=== PATIENT | male | born 1980 | race Caucasian/White ===

== ENCOUNTER 2023-05-21 15:36 | Outpatient (OUT) | payer OTHER, SELFPAY ==
--- NOTE | 2023-05-21 15:40 | US_ITS ---
[facility] [id number] Patient Name: ARLEN VERGARA MRN: [id number] date: 1980 Sex: M Assigned Patient Location: [place] Current Patient Location: Accession/Order Number: [id number] Exam Date: 05/21/2023 15:41 Report Date: 05/23/2023 02:07 At the request of: NON-STAFF PHYSICIAN Procedure: US venous doppler LE RT EXAMINATION: US venous doppler LE RT HISTORY: Pain and swelling of right lower leg M79.661 COMPARISON: No relevant comparison available. FINDINGS: REGION: Right lower extremity THROMBI: None. COMPRESSIBILITY: Normal compressibility. FLOW: Normal waveform and antegrade flow between 5 and 20 cm/s. OTHER: None. US/US venous doppler LE RT IMPRESSION: 1. No deep vein thrombus within the right lower extremity. 2. Several patent superficial varicosities seen in region of patient's pain. Electronically authenticated by: TROY ACUNA Date: 05/23/2023 02:07
== END 2023-05-21 15:37 | disposition home or self-care (01) ==
LOC: US 15:36
PROVIDERS: PCP Family Medicine
DX: M79.661 Pain in right lower leg (principal); M79.89 Other specified soft tissue disorders
CPT/HCPCS: 93971

== ENCOUNTER 2023-09-16 10:06 | Outpatient (REF) | payer OTHER, SELFPAY ==
[2023-09-16 10:50] LABS: SARS-CoV-2 Ag POSITIVE (NEGATIVE)
== END 2023-09-16 10:07 | disposition home or self-care (01) ==
LOC: LAB 10:06
PROVIDERS: PCP Family Medicine; Visit Provider Family Medicine
DX: R52 Pain, unspecified (principal)
CPT/HCPCS: 87811

== ENCOUNTER 2025-07-23 10:56 | Outpatient (OUT) | payer BC, SELFPAY ==
--- OUTSIDE RECORDS SUMMARY | 2025-07-23 11:09 | XMS_ITS | CCD ---
Author Organization [facility] Care Team Providers Care Lamination Operator Name Role Phone DR DONAVAN WRAY Primary Care Unavailable NICO HUNT Admitting Unavailable NICO HUNT Attending Unavailable NICO HUNT Consulting Unavailable EVELIA BARRERA Unavailable KAMALA, DR COX Primary Care Unavailable JASPAL CAMEJO Admitting Unavailable JASPAL CAMEJO Attending Unavailable ARLEN ALVAREZ Unavailable NICO HUNT Consulting Unavailable Donavan Wray MD Primary Care Provider [phone] Navya Calvin NP Unavailable Dann Zelaya MD Attending Provider Dann Zelaya Attending Unavailable Dann Zelaya Admitting Unavailable ROSIE FOREMAN Attending Unavailable NAVYA CALVIN Attending Unavailable SARINA CASANOVA Attending Unavailable SARINA CASANOVA Attending Unavailable SAMUEL LOPEZ Attending Unavailable SARINA CASANOVA Referring Unavailable ROSIE FOREMAN Attending Unavailable SARINA CASANOVA Referring Unavailable NAVYA CALVIN NP-C Attending Unavailable NAVYA CALVIN NP-C Referring Unavailable Allergies Allergy Classification Reported Allergen(s) Allergy Type Date of Onset Reaction(s) Facility (1 source) Penicillin Drug Allergy 07-11-2021 [facility] Repository (20 sources) Penicillins Drug Allergy 11-23-2022 Unknown [facility] Medications Current Medications Medication Drug Class(es) Dates Sig (Normalized) Sig (Original) [id number] 200 actuat albuterol 0.09 mg/actuat metered dose inhaler (20 sources) beta2-Adrenergic Agonist Start: 05-18-2024 take 2 puff(s) by inhalation every six hours for wheezing albuterol HFA 90 mcg/act inhaler Indications: Shortness of breath Inhale 2 puffs every 6 (six) hours if needed for wheezing or shortness of breath 18 g 11 05/18/2024 Active amLODIPine 10 mg oral tablet (20 sources) Dihydropyridine Calcium Channel Rdoy Start: 06-12-2025 take 1 tablet by mouth once daily amLODIPine (Norvasc) 10 MG tablet Indications: Benign essential hypertension Take 1 tablet (10 mg) by mouth Daily 30 tablet 06/12/2025 Active Start: 09-06-2024 take 1 tablet by paramjit th once daily amLODIPine (Norvasc) 10 MG tablet Indications: Benign essential hypertension (CMS/HCC) TAKE 1 TABLET BY MOUTH EVERY DAY 90 tablet 4 09/06/2024 Active Start: 08-23-2023 take 1 tablet by paramjit th once daily amLODIPine (Norvasc) 10 MG tablet Indications: Benign essential hypertension (CMS/HCC) TAKE 1 TABLET BY MOUTH DAILY 100 tablet 3 08/23/2023 Active benzonatate 100 mg oral capsule (2 sources) Non-narcotic Antitussive Start: 08-17-2024 End: 08-24-2024 take 1 capsule by mouth three times daily as needed for cough benzonatate (Tessalon Perles) 100 MG capsule Indications: Acute cough , Abnormal lung sounds , Acute bronchitis, unspecified organism Take 1 capsule (100 mg) by mouth 3 (three) times a day as needed for cough for up to 7 days Do not crush or chew. 20 capsule 08/17/2024 08/24/2024 Active cefdinir 300 mg oral capsule (2 sources) Cephalosporin Antibacterial Start: 06-28-2025 End: 07-08-2025 take 1 capsule by mouth in the morning cefdinir (Omnicef) 300 MG capsule Indications: Acute non-recurrent pansinusitis Take 1 capsule (300 mg) by mouth in the morning and 1 capsule (300 mg) before bedtime. Do all this for 10 days. 20 capsule 06/28/2025 07/08/2025 Active codeine phosphate 2 mg/ml / guaiFENesin 20 mg/ml oral solution (3 sources) Opioid Agonist Start: 06-05-2024 End: 06-12-2024 take 10 mL by mouth every six hours for cough guaiFENesin-code ine (Robitussin-AC) 100-10 MG/5ML syrup Indications: Moderate persistent asthma with exacerbation (CMS/HCC) Take 10 mL by mouth every 6 (six) hours if needed for cough for up to 7 days 280 mL 06/05/2024 06/12/2024 Active hydroCHLOROthiazide 12.5 mg / lisinopril 20 mg oral tablet (20 sources) Thiazide Diuretic, Angiotensin Converting Enzyme Inhibitor Start: 09-06-2024 take 1 tablet by mouth twice daily lisinopril-hydro CHLOROthiazide 20-12.5 MG tablet Indications: Benign essential hypertension TAKE 1 TABLET BY MOUTH TWICE A DAY 180 tablet 4 09/06/2024 Active Start: 08-23-2023 take 1 tablet by paramjit twice daily lisinopril-hydroCHLOROthiazide 20-12.5 M G tablet Indications: Benign essential hypertension (CMS/HCC) TAKE 1 TABLET BY MOUTH TWICE A DAY 200 tablet 3 08/23/2023 Active methylPREDNISolone (4 sources) Corticosteroid Start: 06-28-2025 End: 07-05-2025 methylPREDNISolone (Medrol Dospak) 4 MG tablets Indications: Acute non-recurrent pansinusitis Follow schedule on package instructions 21 tablet 06/28/2025 07/05/2025 Active Start: 08-17-2024 End: 08-24-2024 methylPREDNISolone (Medrol D ospak) 4 MG tablets Indications: Acute cough , Abnormal lung sounds , Acute bronchitis, unspecified organism Follow schedule on package instructions 21 tablet 08/17/2024 08/24/2024 Active sildenafil 100 mg oral tablet (19 sources) Phosphodiesterase 5 Inhibitor Start: 08-07-2024 take 1 tablet by mouth once daily as needed sildenafil (Viagra) 100 MG tablet Indications: Erectile dysfunction, unspecified erectile dysfunction type TAKE 1 TABLET BY MOUTH EVERY DAY NEEDED 3 tablet 11 08/07/2024 Active Start: 05-05-2023 End: 06-05-2024 sildenafil (Viagra) 100 MG t ablet Indications: Erectile dysfunction, unspecified erectile dysfunction type TAKE 1 TABLET ONCE A DAY NEEDED 6 tablet 11 05/05/2023 06/05/2024 Discontinued (Other) Tirzepatide-Weight Managemen t (Zepbound) 2.5 MG/0.5ML solution auto-injector (2 sources) Start: 06-28-2025 End: 07-28-2025 Tirzepatide-Weight Managemen t (Zepbound) 2.5 MG/0.5ML solution auto-injector Indications: Morbid (severe) obesity due to excess calories (CMS-HCC) , Obesity, class 3 , Body mass index (BMI) 40.0-44.9, adult ([facility] [place]) , Fatty liver , Obstructive sleep apnea syndrome , Benign essential hypertension Inject 2.5 mg under the skin 1 (one) time per week 2 mL 06/28/2025 07/28/2025 Active Completed/Discontinued Medications Medication Drug Class(es) Dates Sig (Normalized) Sig (Original) baclofen 10 mg oral tablet (3 sources) gamma-Aminobutyric Acid-ergic Agonist Start: 08-10-2023 End: 06-05-2024 take 1 tablet by mouth at bedtime baclofen (Lioresal) 10 MG tablet Indications: Spasm of muscle of lower back TAKE 1 TABLET BY MOUTH IN THE MORNING, EVENING AND BEFORE BEDTIME 270 tablet 1 08/10/2023 06/05/2024 Discontinued (Other) chlorhexidine gluconate 40 mg/ml medicated liquid soap (5 sources) Start: 11-07-2024 End: 06-28-2025 Chlorhexidine Gluconate (Hibiclens) 4 % solution Indications: Hidradenitis suppurativa Use in shower from the neck down at least 1-2x/week 532 mL 11 11/07/2024 06/28/2025 Discontinued (Therapy completed) clindamycin 10 mg/ml topical lotion (5 sources) Lincosamide Antibacterial Start: 11-07-2024 End: 06-28-2025 clindamycin (Cleocin T) 1 % lotion Indications: Hidradenitis suppurativa Apply thin later to affected areas on the body, once daily 120 mL 11/07/2024 06/28/2025 Discontinued (Therapy completed) cyclobenzaprine hydrochloride 10 mg oral tablet (15 sources) Muscle Relaxant Start: 09-20-2024 End: 06-28-2025 take 1 tablet by mouth three times daily as needed for muscle spasms cyclobenzaprine (Flexeril) 10 MG tablet Indications: Acute left-sided low back pain with left-sided sciatica Take 1 tablet (10 mg) by mouth 3 (three) times a day as needed for muscle spasms for up to 10 days 30 tablet 09/20/2024 06/28/2025 Discontinued (Therapy completed) Start: 08-10-2023 End: 06-05-2024 take 1 tablet by mouth three times daily as needed for muscle spasms cyclobenzaprine (Flexeril) 10 MG tablet Indications: Acute bilateral low back pain with sciatica, sciatica laterality unspecified Take 1 tablet (10 mg) by mouth 3 (three) times a day as needed for muscle spasms for up to 10 days. 30 tablet 08/10/2023 06/05/2024 Discontinued (Other) doxycycline monohydrate 100 mg oral capsule (13 sources) Tetracycline-class Drug Start: 10-24-2024 End: 06-28-2025 take 1 capsule by mouth twice daily doxycycline (Monodox) 100 MG capsule Indications: EIC (epidermal inclusion cyst) Take 1 capsule, by mouth, bid x 7 days 14 capsule 10/24/2024 06/28/2025 Discontinued (Therapy completed) Start: 08-17-2024 End: 08-27-2024 doxycycline (Vibra-Tabs) 100 MG tablet Indications: Acute cough , Abnormal lung sounds , Acute bronchitis, unspecified organism Take 1 tablet (100 mg) by mouth in the morning and 1 tablet (100 mg) before bedtime. Do all this for 10 days. Take with a full glass of water and do not lie down for at least 30 minutes after.. 20 tablet 08/17/2024 08/27/2024 Active Start: 06-05-2024 End: 06-12-2024 doxycycline (Vibramycin) 100 MG capsule Indications: Moderate persistent asthma with exacerbation (CMS/HCC) Take 1 capsule (100 mg) by mouth in the morning and 1 capsule (100 mg) before bedtime. Do all this for 7 days. Take with at least 8 ounces (large glass) of water, do not lie down for 30 minutes after. 14 capsule 06/05/2024 06/12/2024 Active fluticasone propionate 0.05 mg/actuat metered dose nasal spray (3 sources) Corticosteroid End: 06-05-2024 take 1 spray(s) nasal route in the morning fluticasone (Flonase) 50 MCG/ACT nasal spray Administer 1 spray into each nostril in the morning. 06/05/2024 Discontinued (Other) hydroCHLOROthiazide 12.5 mg oral tablet (3 sources) Thiazide Diuretic Start: 06-18-2023 End: 06-05-2024 take 1 tablet by mouth once daily in the morning hydroCHLOROthiazide (HYDRODiuril) 12.5 MG tablet Indications: Benign essential hypertension (CMS/HCC) TAKE 1 TABLET BY MOUTH EVERY DAY IN THE MORNING (12.5 MG) 100 tablet 3 06/18/2023 06/05/2024 Discontinued (Other) magnesium gluconate 550 mg oral tablet (5 sources) End: 06-28-2025 take 1 tablet by mouth in the morning magnesium 30 MG tablet Take 30 mg by mouth in the morning and 30 mg before bedtime. 06/28/2025 Discontinued (Therapy completed) predniSONE 20 mg oral tablet (14 sources) Start: 09-20-2024 End: 06-28-2025 predniSONE (Deltasone) 20 MG tablet Indications: Acute left-sided low back pain with left-sided sciatica 3 tabs x 2 days, 2 tabs x 2 days, 1 1/2 tab x 2 days, 1 tab x 2 days, 1/2 tab x 2 days 5 tablet 09/20/2024 06/28/2025 Discontinued (Therapy completed) Start: 05-18-2024 End: 06-05-2024 take 4 tablets by mouth once daily, then take 3 tablets by mouth once daily, then take 2 tablets by mouth once daily, then take 1 tablet by mouth once daily predniSONE (Deltasone) 10 MG tablet Indications: Bronchitis Take 4 tablets (40 mg) by mouth Daily for 4 days, THEN 3 tablets (30 mg) Daily for 4 days, THEN 2 tablets (20 mg) Daily for 4 days, THEN 1 tablet (10 mg) Daily for 4 days. 40 tablet 05/18/2024 06/05/2024 Discontinued (Other) Turmeric extract (5 sources) End: 06-28-2025 Turmeric (QC TUMERIC COMPLEX PO) Take by mouth 06/28/2025 Discontinued (Therapy completed) Turmeric (QC HELDER FERNANDO COMPLEX PO) Take by mouth Active Problems Active Problems Problem Classification Problem Date Documented Date Episodic/Chronic Acute bronchitis (2 sources) Acute bronchitis; Translations: [Acute bronchitis, unspecified] 08-17-2024 Episodic Anxiety disorders (20 sources) Anxiety; Translations: [Anxiety disorder, unspecified] Onset: 05-11-2023 05-11-2023 Chronic Asthma (20 sources) Asthmatic bronchitis; Translations: [Unspecified asthma, uncomplicated] Onset: 05-11-2023 05-11-2023 Chronic Coma; stupor; and brain damage (20 sources) Daytime somnolence; Translations: [Somnolence] Onset: 05-11-2023 05-11-2023 Episodic E Codes: Fall (1 source) Fall on same level from slipping, tripping and stumbling without subsequent striking against object, initial encounter; Translations: [FALL SAME LVL SLIP NO STRK OBJ INIT] Onset: 08-24-2022 Episodic Esophageal disorders (20 sources) Gastroesophageal reflux disease; Translations: [Gastro-esophageal reflux disease without esophagitis] Onset: 06-06-2008 05-11-2023 Chronic Essential hypertension (20 sources) Benign essential hypertension; Translations: [Essential (primary) hypertension] Onset: 06-06-2008 05-11-2023 Chronic Joint disorders and dislocations; trauma-related (20 sources) Patellar maltracking; Translations: [Other disorders of patella, unspecified knee] Onset: 05-11-2023 05-11-2023 Chronic Open wounds of extremities (6 sources) Laceration without foreign body of left hand, initial encounter; Translations: [Open wound of left thigh] Onset: 09-11-2021 Episodic Osteoarthritis (20 sources) Osteoarthritis of right knee joint; Translations: [Unilateral primary osteoarthritis, right knee] Onset: 11-03-2019 05-11-2023 Chronic Other aftercare (1 source) Other long term care social worker (current) drug therapy; Translations: [OTH AVIATION PROJECT ENGINEER CURRENT DRUG THERAPY] Onset: 08-24-2022 Episodic Other circulatory disease (2 sources) Abnormal chest sounds; Translations: [Other specified symptoms and signs involving the circulatory and respiratory systems] 08-17-2024 Episodic Other ear and sense organ disorders (2 sources) Impacted cerumen in right ear; Translations: [Impacted cerumen, right ear] 08-17-2024 Episodic Other liver diseases (4 sources) Steatosis of liver; Translations: [Fatty (change of) liver, not elsewhere classified] 06-28-2025 Chronic Other lower respiratory disease (2 sources) Cough; Translations: [Acute cough] 08-17-2024 Episodic Other lower respiratory disease (2 sources) Dyspnea; Translations: [Shortness of breath] 06-28-2025 Episodic Other male genital disorders (20 sources) Secondary erectile dysfunction; Translations: [Male erectile dysfunction, unspecified] Onset: 05-11-2023 05-11-2023 Chronic Other non-traumatic joint disorders (20 sources) Derangement of right shoulder joint; Translations: [Other specific joint derangements of right shoulder, not elsewhere classified] Onset: 05-11-2023 05-11-2023 Chronic Other non-traumatic joint disorders (3 sources) Pain in right knee; Translations: [PAIN IN RIGHT KNEE] Onset: 08-23-2022 Episodic Other nutritional; endocrine; and metabolic disorders (20 sources) Obese class II; Translations: [Class 2 obesity] Onset: 05-11-2023 05-11-2023 Chronic Other nutritional; endocrine; and metabolic disorders (20 sources) Obesity; Translations: [Obesity, unspecified] Onset: 05-11-2023 05-11-2023 Chronic Other nutritional; endocrine; and metabolic disorders (4 sources) Obese class III; Translations: [Obesity, class 3] 06-28-2025 Chronic Other nutritional; endocrine; and metabolic disorders (4 sources) Body mass index 40+ - severely obese; Translations: [Body mass index (BMI) 40.0-44.9, adult] 06-28-2025 Chronic Other nutritional; endocrine; and metabolic disorders (2 sources) Obesity caused by energy imbalance; Translations: [Morbid (severe) obesity due to excess calories] 06-28-2025 Chronic Other screening for suspected conditions (not mental disorders or infectious disease) (4 sources) Patient encounter status; Translations: [Encounter for screening for malignant neoplasm of prostate] 06-28-2025 Episodic Other skin disorders (4 sources) Epidermoid cyst; Translations: [Epidermal cyst] 10-24-2024 Episodic Other skin disorders (2 sources) Seborrheic keratosis; Translations: [Other seborrheic keratosis] 11-07-2024 Episodic Other skin disorders (2 sources) Hidradenitis suppurativa; Translations: [Hidradenitis suppurativa] 11-08-2024 Episodic Other upper respiratory disease (20 sources) Allergic rhinitis due to pollen; Translations: [Allergic rhinitis due to pollen] Onset: 05-11-2023 05-11-2023 Chronic Other upper respiratory infections (2 sources) Acute pansinusitis; Translations: [Acute pansinusitis, unspecified] 06-28-2025 Episodic Residual codes; unclassified (20 sources) Obstructive sleep apnea syndrome; Translations: [Obstructive sleep apnea (adult) (pediatric)] Onset: 05-11-2023 05-11-2023 Chronic Residual codes; unclassified (2 sources) Pain; Translations: [Pain, unspecified] 10-24-2024 Episodic Spondylosis; intervertebral disc disorders; other back problems (2 sources) Acute back pain with sciatica; Translations: [Lumbago with sciatica, left side] 09-20-2024 Episodic Sprains and strains (1 source) Sprain of unspecified site of right knee, initial encounter; Translations: [SPRAIN UNS SITE RT KNEE INITIAL] Onset: 08-24-2022 Episodic Substance-related disorders (20 sources) Nicotine dependence, cigarettes, uncomplicated; Translations: [Smoker] Onset: 08-24-2022 05-11-2023 Chronic Unclassified (2 sources) Open wound of left thigh 09-25-2024 Past or Other Problems Problem Classification Problem Date Documented Da te Episodic/Chronic Abdominal hernia (15 sources) Umbilical hernia; Translations: [Umbilical hernia without obstruction or gangrene] Onset: 10-12-2024 09-25-2024 Episodic E Codes: Cut/pierceb (1 source) Nail entering through skin, initial encounter; Translations: [NAIL ENTERING THROUGH SKIN INITIAL] Onset: 09-15-2021 Episodic Immunizations and screening for infectious disease (1 source) Encounter for immunization; Translations: [ENCOUNTER FOR IMMUNIZATION] Onset: 09-15-2021 Episodic Other injuries and conditions due to external causes (20 sources) Bone injury; Translations: [Other injury of unspecified body region, initial encounter] Onset: 05-11-2023 05-11-2023 Episodic Other lower respiratory disease (2 sources) Cough; Translations: [Acute cough] 06-05-2024 Episodic Results Test Name Value Interpretation Reference Range Facility Pathology Request for Lab Co rpon 04-04-2025 Pathology Request for Lab Lisa Normal [facility] Comment on above: Order Comment: SKIN SPECIMEN Result Comment: See report. Scanned copy available in EMR. PERFORMED BY: [facility] [place] [address] PATHOLOGIST SEAFOOD PACKER ZAKIA POLANCO M.D. Performed By: #### P ATH TO [facility] #### [facility] [address] COMMON RESPIRATORY BACTERIAL /VIRAL INFECTION (HTRX)on 06-07-2024 ADENOVIRUS HADV-B 0.000 [facility] ADENOVIRUS HADV-B Not detected [facility] BORDETELLA PERTUSSIS, PARAPERTUSIS, BRONCHISEPTICA 0.000 [facility] BORDETELLA PERTUSSIS, PARAPERTUSIS, BRONCHISEPTICA Not detected [facility] CHLAMYDIA PNEUMONIAE 0.000 [facility] CHLAMYDIA PNEUMONIAE Not detected [facility] CORONAVIRUS (NL63, OC43, AND HKU1) 0.000 [facility] CORONAVIRUS (NL63, OC43, AND HKU1) Not detected [facility] ENTEROVIRUS D68 0.000 [facility] ENTEROVIRUS D68 Not detected [facility] HAEMOPHILUS INFLUENZAE 0.000 [facility] HAEMOPHILUS INFLUENZAE Not detected [facility] HUMAN METAPNEUMOVIRUS 0.000 [facility] HUMAN METAPNEUMOVIRUS Not detected [facility] INFLUENZA VIRUS A, B 0.000 [facility] INFLUENZA VIRUS A, B Not detected [facility] MORAXELLA CATARRHALIS 0.000 [facility] MORAXELLA CATARRHALIS Not detected [facility] MYCOPLASMA PNEUMONIAE 0.000 [facility] MYCOPLASMA PNEUMONIAE Not detected [facility] PARAINFLUENZA VIRUS (TYPES 1, 2, 3, 4) 0.000 [facility] PARAINFLUENZA VIRUS (TYPES 1, 2, 3, 4) Not detected [facility] RESPIRATORY SYNCYTIAL VIRUS 0.000 [facility] RESPIRATORY SYNCYTIAL VIRUS Not detected [facility] RHINOVIRUS-ENTEROVIRU S 0.000 [facility] RHINOVIRUS-ENTEROVIRU S Not detected [facility] SARS-CoV-2 (COVID-19) RNA JEANNA+probe Ql (Unsp spec) Negative [facility] SARS-CoV-2 (COVID-19) RNA JEANNA+probe Ql (Unsp spec) Not detected [facility] STREPTOCOCCUS PNEUMONIAE 0.000 [facility] STREPTOCOCCUS PNEUMONIAE Not detected [facility] MRI Knee w/o Righton 022 MRI Knee w/o Right HISTORY: Anterior knee pain. Injury 2 weeks ago. Internal derangement. COMPARISON: Radiographs of the knee 09/02/2021 TECHNIQUE: Multiplanar multisequence MRI of the right knee was performed without contrast. FINDINGS: Quadriceps and patellar tendons are intact. Small joint effusion. Mild nonspecific prepatellar/infrapat ellar subcutaneous soft tissue edema. Patella marilyn. The trochlear groove is shallow. Tibial tuberosity to trochlear groove distance of approximately 11 mm. Mild edema within the superolateral Hoffa's fat pad. The anterior cruciate ligament and posterior cruciate ligament are intact. The medial collateral ligament, lateral collateral ligament, and popliteus myotendinous unit are intact. Mild edema along the medial collateral ligament. The medial meniscus and lateral meniscus are intact. No well defined or measurable articular cartilage defect or subchondral bone marrow edema. Small areas of bone marrow edema of the posterior medial femoral condyle and posterior lateral femoral condyle without hypointense linear evidence of fracture. Popliteal fossa structures are intact. No Segal's cyst. IMPRESSION: Mild edema along the intact medial collateral ligament suggests mild MCL sprain. Findings predisposing to and suggesting patellar instability/maltrack ing. Small contusions of the posterior medial femoral condyle and lateral femoral condyle. Mild nonspecific prepatellar/infrapat ellar subcutaneous soft tissue edema. Report reported and signed by Yo Johnson on 09/01/2022 1046 Normal [facility] [employer] XR KNEE RT 4V or >on 022 XR KNEE RT 4V or > EXAM: XR KNEE RT 4V or > INDICATION: pain. COMPARISON: None. TECHNIQUE: Right knee, 4 views FINDINGS: No acute fracture or dislocation. The knee joint spaces are preserved. Tiny patellar osteophyte. No suprapatellar joint effusion. Unremarkable soft tissues. IMPRESSION: No acute osseous abnormality. Electronically authenticated by: EVELIA BARRERA Date: 2022-08-23 13:[address] [facility] XR HAND LT MIN 3Von 09-11-20 21 XR HAND LT MIN 3V EXAM: Left hand HISTORY: Puncture wound injury today. TECHNIQUE: 3 views of the left hand were obtained. FINDINGS: There is no evidence of fracture or dislocation. There are no suspicious bone lesions. No foreign bodies are seen. Soft tissues are normal. IMPRESSION: Unremarkable exam. Electronically authenticated by: ARLEN ALVAREZ Date: 2021-09-11 08:[address] [facility] Coding Summaryon 12-04-2019 Coding Summary CODING DATE: 12/04/2019 [facility] STATUS: Home PAYOR: Commercial Insurance APC DESCRIPTION 5052 Level 2 Skin Procedures ADMIT DX: REASON FOR VISIT DX: N48.89 Other specified disorders of penis FINAL DX: PRINCIPAL: D29.0 Benign neoplasm of penis SECONDARY: A63.0 Anogenital (venereal) warts N48.89 Other specified disorders of penis R23.4 Changes in skin texture L08.9 Local infection of the skin and subcutaneous tissue, unspecified I10 Essential (primary) hypertension PYMT PROC APC STAT DESCRIPTION DOCTOR NAME DATE 608985051 T Destruction of Gideon Stephens MD 11/27/2019 lesion(s), penis (eg, condyloma, papilloma, molluscum contagiosum, herpetic vesicle), simple; chemical NOTE: The code number assigned matches the documented diagnosis and / or procedure in the patient's chart. However, the narrative phrase printed from the coding software may appear abbreviated, or result in slightly different terminology. Coded By: Judi Peterson Date Saved: 12/04/2019 06:58 am [facility] - AP Resultson 0 Lab - AP Results [id number] [facility] Sendout Teston Pathology Send Out. See Report [facility] Comment on above: Order Comment: penil e base condyloma Performed By: #### 2 [id number] #### [facility] (DEFAULT) [address] [place] [address] Consent Formson 11-28-2019 Consent Forms [id number] [facility] History and Physicalon 11-28 History and Physical [id number] #[facility] Intraoperative Recordon 11-28-2019 [facility] Intraoperative Record [facility] Intra-Op Record Summary Primary Physician: Gideon Stephens MD Finalized Date/Time: 11/28/19 09:13:50 Pt. Name: ARLEN VERGARA Ganga/Sex: 1980 MALE Med Rec #: [id number] Physician: Gideon Stephens MD Financial #: [id number] Pt. Type: D Room/Bed: / Admit/Disch: 11/27/19 11:16:46 - 11/27/19 14:00:00 Institution: Case Times MAGR Entry 1 Patient In Room Time 11/27/19 12:40:00 Out Room Time 11/27/19 13:44:00 Anesthesia Start Time 11/27/19 12:50:00 Stop Time 11/27/19 13:41:00 Surgery Start Time 11/27/19 12:50:00 Stop Time 11/27/19 13:41:00 Last Modified By: Cathie Hernandez RN 11/27/19 13:43:11 Case Attendance MAGR Entry 1 Entry 2 Entry 3 Case Attendee Angelo ROSA, Gideon Hernandez RN, Cathie Sousa [facility], Tessa Role Performed Surgeon - Primary Brand Inspector Scrub Personnel Time In 11/27/19 12:40:00 11/27/19 12:40:00 11/27/19 12:40:00 Time Out 11/27/19 13:44:00 11/27/19 13:44:00 11/27/19 13:44:00 Procedure Incision and Drainage Incision and Drainage Incision and Drainage Last Modified By: David MCKEON, Cathie Hernandze RN, Cathie Hernandez RN, Cathie Grove 11/27/19 13:43:13 11/27/19 13:43:13 11/27/19 13:43:13 Surgical Procedures MAGR Pre-Care Text: A.20 Verifies operative procedure, surgical site, and laterality Im.150 Develops individualized plan of care Entry 1 Procedure Incision and Drainage Primary Procedure Yes Primary Surgeon Gideon Stephens MD Surgeon Comment E/O SCROTAL AND PENILE SEBACEOUS CYST Start 11/27/19 12:50:00 Stop 11/27/19 13:41:00 Anesthesia Type Local Surgical Service Urology Wound Class Clean-Contaminated Technique Details Closure Technique Primary Entire procedure No was performed via laparoscope or robotic assistance Last Modified By: Cata Waddell RN 11/28/19 09:12:38 Post-Care Text: O.730 The patient's care is consistent with the individualized perioperative plan of care General Case Data MAGR Pre-Care Text: A.350.1 Classifies surgical wound Entry 1 Case Information OR MAGR OR 03 Case Level Level 2 Wound Class Clean-Contaminated Specialty Urology ASA Class N/A Diagnosis Preop Diagnosis SCROTAL CYST Postop Same As Preop Yes Postop Diagnosis SCROTAL CYST Blunt or No Is the procedure No penetrating injury considered occured prior to Emergent/Urgent? the start of the procedure: Last Modified By: Cata Waddell RN 11/28/19 09:12:47 Post-Care Text: O.760 Patient receives consistent and comparable care regardless of the setting Time Out MAGR Entry 1 Time out date/time 11/27/19 12:47:00 All team members Yes have introduced themselves by name and role Surgeon, Yes Surgeon reviews Yes anesthesia, nurse critical or confirm patient, unexpected steps, site, procedure operative duration, anticipated blood loss Anesthesia team No Nursing team Yes reviews any reviews sterility patient-specific (including concerns indicator results) and equipment issues/concerns Antibiotic Last Modified By: Cathie Hernandez RN 11/27/19 12:59:52 Patient Positioning MAGR Pre-Care Text: A.280 Identifies baseline musculoskeletal status Im.40 Positions the patient Im.80 Applies safety devices Entry 1 Procedure Incision and Drainage Body Position Supine Left Arm Position Extended on padded arm Right Arm Position Extended on padded arm board board Left Leg Position Extended Right Leg Position Extended Feet Uncrossed? Yes Press Points Checked Yes Positioning Device Safety Strap, Pillow Outcome Met (O.80) Yes Last Modified By: Cathie Hernandez RN 11/27/19 13:00:14 Post-Care Text: E.290 Evaluates musculoskeletal status O.80 Patient is free from signs and symptoms of injury related to positioning Skin Prep MAGR Pre-Care Text: A.30 Verifies allergies Im.270 Performs skin preparation Im.270.1 Implements protective measures to prevent skin and tissue injury due to chemical sources Entry 1 Skin Prep Syntegrity Prep Agents (Im.270) Other Prep By Cathie Hernandez RN Prep Area (Im.270) Perineum, Scrotum Prep Area Details Bilateral Skin Prep Agent Dry Yes Without Pooling Hair Removal Syntegrity Hair Removal Methods No hair removal performed Outcome Met (O.100) Yes Last Modified By: Cathie Hernandez RN 11/27/19 13:01:13 Post-Care Text: E.10 Evaluates for signs and symptoms of physical injury to skin and tissue O.100 Patient is free from signs and symptoms of chemical injury Cautery MAGR Pre-Care Text: A.240 Assesses baseline skin condition A.40 Verifies presence of prosthetics or corrective devices Im.50 Implements protective measures to prevent injury due to electrical sources Entry 1 ESU Type Electrosurgical Unit Identification [id number] Number ESU Settings Syntegrity Cut Setting 20 Coag Setting 20 Grounding Pad Details Grounding Pad Yes Verified By Cathie Hernandez RN Needed? Grounding Pad Site Shoulder Grounding Pad Site Left Detail Within Expiration Yes Date? Outcome Met (O.10) Yes Last Modified By: Cathie Hernandez RN 11/27/19 13:15:26 Post-Care Text: E.10 Evaluates for signs and symptoms of physical injury to skin and tissue O.10 Patient is free from signs and symptoms of injury related to thermal sources Cultures and Specimens MAGR Pre-Care Text: A.350 Assesses susceptibility for infection A.10 Confirms patient identity Im.320 Manages culture specimen collection Im.330 Manages specimen handling and disposition Entry 1 Cultures Ordered No Specimens Ordered Yes Outcome Met (O.40) Yes Last Modified By: Cathie Hernandez RN 11/27/19 13:04:58 Post-Care Text: E.40 Evaluates correct processes have been performed for specimen handling and disposition O.40 Patient's specimen(s) is managed in the appropriate manner Medication Administration MAGR Pre-Care Text: A.210 Identifies physiological status Im.220 Administers prescribed medications Entry 1 Entry 2 Entry 3 Time Administered 11/27/19 12:48:00 11/27/19 12:48:00 11/27/19 13:14:00 Medication LIDOCAINE 1% sodium Bicarbonate 8.4% bacitracin Route of Admin Incisional/Surgical Site SubQ TOP Dose 16 mL 2 mL Volume By Angelo ROSA, Gideon Stephens MD, Gideon Stephens MD, Gideon Mathew Outcome Met (O.130) Yes Yes Yes Last Modified By: Cathie Hernandez RN, RN, Cathie Taylor RN 11/27/19 13:13:35 11/27/19 13:13:35 11/27/19 13:14:52 Post-Care Text: E.20 Evaluates response to medications O.130 Patient receives appropriately administered medication(s) General Comments: Mixed lidocaine and sodium bicarb in a 9:1 ml ratio Departure from OR MAGR Entry 1 Present on Depart Oxygen Via Stretcher Post-op Destination Home Skin DFO Condition Dry Description Condition Warm Description Report Given To Cathie Hernandez RN Airway Maintenance Patient Status Stable Oxygen in Use? No Last Modified By: Cathie Hernandez RN 11/27/19 13:15:19 Case Comments Finalized By: Cata Waddell RN Document Signatures Signed By: Cata Waddell RN 11/28/19 09:12 Cathie Hernandez RN 11/27/19 13:50 Cata Waddell RN 11/28/19 09:13 Unfinalized History Date/Time Username Reason for Unfinalizing Freetext Reason for Unfinalizing 11/28/19 09:12 MHBLONG Modify Pick List 11/28/19 09:13 MHBLONG Modify [facility] List [facility] Provider Orderson 11-28-2019 Provider Orders [id number] [facility] Inpatient Patient Summaryon 11-27-2019 [place]patient [place] [address] Patient Discharge Instructions Name: ARLEN VERGARA : 1980 Patient Address: [address] [place] [address] Primary Care Provider: Name: DONAVAN WRAY MD After you are discharged if you find you have any questions, please, call [phone] ext [phone] to speak to a nurse. Discharge Diagnosis: Scrotal sebaceous cyst Prescription Information: If you have been given a prescription for narcotics, seek immediate medical attention if you have any difficulty breathing or any sudden status changes such as confusion and sleepiness. If you or anyone you know is experiencing suicidal thoughts, mental health, alcohol and/or drug addiction problems; contact the [facility] 03/05 Crisis Hotline -Text 4HOPE to 328869. If you received any narcotics, sedation, or any other medication that causes drowsiness for the next 24 hours, unless otherwise directed: ? Do not drive a car. ? Do not operate machinery such as power tools, lawn mowers, drills, sewing machines, or stoves ? Avoid alcoholic beverages and drugs for allergies, nerves, or sleep ? Do not make important personal or business decisions or sign any legal documents [facility] would like to thank you for allowing us to assist you with your healthcare needs. The following includes patient education materials and information regarding your injury/illness. ARLEN VERGARA has been given the following list of follow-up instructions, prescriptions, and patient education materials: Follow-up Instructions With: Address: When: Gideon Stephens [address] [place] [address], [address] [place] [address] Business (1) In 2 weeks 12/11/2019 With: Address: When: DONAVAN WRAY [address] [place] [address] Business (1) Medications During the course of your visit, your medication list was updated with the most current information. The details of those changes are reflected below: New Medications Printed Prescriptions cephalexin (Keflex 500 mg oral capsule) 1 cap(s) Oral Every 8 hours. Refills: 0. Medications That Were Updated - Follow Below Instructions Printed Prescriptions Updated: traMADol (Ultram 50 mg oral tablet) 1 tab(s) Oral every 6 hours as needed as needed for pain. Refills: 0. Other Medications Updated: traMADol (traMADol 50 mg oral tablet) 1 tab(s) Oral Every 12 hours scheduled time as needed as needed for pain. Medications to Continue That Have Not Changed Other Medications amLODIPine (amLODIPine 10 mg oral tablet) 1 tab(s) Oral every day. hydrochlorothiazide- lisinopril (hydrochlorothiazide -lisinopril 12.5 mg-20 mg oral tablet) 1 tab(s) Oral every day. potassium chloride (Potassium Chloride) 1 tab(s) Oral every day. sildenafil (sildenafil 100 mg oral tablet) It is important to always keep an active list of medications available so that you can share with other providers and manage your medications appropriately. As an additional courtesy, we are also providing you with your final active medications list that you can keep with you. amLODIPine (amLODIPine 10 mg oral tablet) 1 tab(s) Oral every day. cephalexin (Keflex 500 mg oral capsule) 1 cap(s) Oral Every 8 hours. Refills: 0. hydrochlorothiazide- lisinopril (hydrochlorothiazide -lisinopril 12.5 mg-20 mg oral tablet) 1 tab(s) Oral every day. potassium chloride (Potassium Chloride) 1 tab(s) Oral every day. sildenafil (sildenafil 100 mg oral tablet) traMADol (traMADol 50 mg oral tablet) 1 tab(s) Oral Every 12 hours scheduled time as needed as needed for pain. traMADol (Ultram 50 mg oral tablet) 1 tab(s) Oral every 6 hours as needed as needed for pain. Refills: 0. Take only the medications listed above. Contact your doctor prior to taking any medications not on this list. Diet & Activity Patient Activity Level: As Tolerated Patient Diet: Regular Patient Activity Restrictions: Comment: Patient education materials, if any, will display below Viruses or Bacteria What?s got you sick? Antibiotics only treat bacterial infections. Viral illnesses cannot be treated with antibiotics. When an antibiotic is not prescribed, ask your healthcare professional for tips on how to relieve symptoms and feel better. Usual Cause Illness Viruses Bacteria Antibiotic Needed Cold/Runny Nose NO Bronchitis/Chest Cold (in otherwise healthy children and adults) NO Whooping Cough Yes Flu NO Strep Throat Yes Sore Throat (except strep) NO Fluid in the middle ear (otitis media with effusion) NO Urinary Tract Infection Yes Antibiotics Aren?t Always the Answer www.cdc.gov/getsmart GET SMART Know When Antibiotics Work U.S. Department of Health and Human Services Centers for Disease Control and Prevention June 2014 [facility] MAGR Preoperative Recordon 0 11-27-2019 MAGR Preoperative Record MAGR Pre-Op Record Summary Primary Physician: Gideon Stephens MD Finalized Date/Time: 11/27/19 13:52:03 Pt. Name: ARLEN VERGARA/Sex: 1980 MALE Med Rec #: [id number] Physician: Gideon Stephens MD Financial #: [id number] Pt. Type: D Room/Bed: / Admit/Disch: 11/27/19 11:16:46 - Institution: Pre-Op Case Times MAGR Pre-Care Text: Patient will be optimally prepared for surgery. Patient is free from s/s of injury. Provide information to patient/family related to plan of care. Verify patient allergies. Confirm identity and verify consent before the operative or invasive procedure. Entry 1 Patient Arrival Time 11/27/19 11:33:00 Preop Departure 11/27/19 12:38:00 Last Modified By: Cathie Hernandez RN 11/27/19 13:52:00 Post-Care Text: Patient is prepared mentally and physically and is ready for surgery. The patient remains free from s/s of injury. Patient/family express understanding of plan of care and participate in decisions affecting his or her perioperrative plan of care. Allergies documented appropriately. Patient identifiers and consent correct. General Comments: Pt arrives to w ambulatory. PT denies pain, cp, sob, cough or flu like symptoms. Pt denies pacemaekr/defibillat or or sleep apena. Finalized By: Cathie Hernandez RN Document Signatures Signed By: Cathie Hernandez RN 11/27/19 13:52 [facility] Patient Handouton 11-27-2019 Patient Handout [facility] Vital Signs Date Time Vital Sign Value Performing Clinician Seani alfred 06-28-2025 16:19-0400 Body height 181.6 cm Navya Calvin NP Work Phone: [facility] 06-28-2025 16:19-0400 Body mass index (BMI) [Ratio] 44.15 kg/m2 Navya Calvin NP Work Phone: [facility] 06-28-2025 16:19-0400 Body weight 145.6 kg Navya Calvin NP Work Phone: [facility] 06-28-2025 16:19-0400 Diastolic blood pressure 78 mm[Hg] Navya Calvin NP Work Phone: [facility] 06-28-2025 16:19-0400 Heart rate 76 /min Navya Calvin [employer] Work Phone: [facility] 06-28-2025 16:19-0400 Respiratory rate 18 /min Navya Calvin NP Work Phone: [facility] 06-28-2025 16:19-0400 SaO2% (BldA) [Mass fraction] 94 % Navya Calvin [employer] Work Phone: [facility] 06-28-2025 16:19-0400 Systolic blood pressure 142 mm[Hg] Navya Calvin INSPECTOR [employer] Work Phone: [facility] 10-12-2024 10:14-0500 Body height 181.6 cm Samuel Itzkowitz DO Work Phone: [facility] 10-12-2024 10:14-0500 Body mass index (BMI) [Ratio] 43.6 kg/m2 Samuel Itzkowitz DO Work Phone: [facility] 10-12-2024 10:14-0500 Body weight 143.79 kg Samuel Itzkowitz DO Work Phone: [facility] 10-12-2024 10:14-0500 Diastolic blood pressure 98 mm[Hg] Samuel Itzkowitz DO Work Phone: [facility] 10-12-2024 10:14-0500 Systolic blood pressure 148 mm[Hg] Samuel Itzkowitz DO Work Phone: [facility] 09-20-2024 15:21-0500 Body height 180.3 cm Sarina Casanova INSPECTOR [employer] Work Phone: [facility] 09-20-2024 15:21-0500 Body mass index (BMI) [Ratio] 42.34 kg/m2 Sarina Casanova INSPECTOR [employer] Work Phone: [facility] 09-20-2024 15:21-0500 Body weight 137.71 kg Sarina Casanova INSPECTOR [employer] Work Phone: [facility] 09-20-2024 15:21-0500 Diastolic blood pressure 97 mm[Hg] Sarina Casanova INSPECTOR [employer] Work Phone: [facility] 09-20-2024 15:21-0500 Heart rate 95 /min Sarina Casanova INSPECTOR [employer] Work Phone: [facility] 09-20-2024 15:21-0500 Respiratory rate 19 /min Sarina Casanova INSPECTOR [employer] Work Phone: [facility] 09-20-2024 15:21-0500 SaO2% (BldA) [Mass fraction] 98 % Sarina Casanova INSPECTOR [employer] Work Phone: [facility] 09-20-2024 15:21-0500 Systolic blood pressure 192 mm[Hg] Sarina Casanova INSPECTOR [employer] Work Phone: [facility] 08-17-2024 15:46-0500 Body height 181.6 cm Sarina Casanova INSPECTOR [employer] Work Phone: [facility] 08-17-2024 15:46-0500 Body mass index (BMI) [Ratio] 40.85 kg/m2 Sarina Casanova INSPECTOR [employer] Work Phone: [facility] 08-17-2024 15:46-0500 Body temperature 98.4 [degF] Sarina Casanova INSPECTOR [employer] Work Phone: [facility] 08-17-2024 15:46-0500 Body weight 134.72 kg Sarina Casanova INSPECTOR [employer] Work Phone: [facility] 08-17-2024 15:46-0500 Diastolic blood pressure 76 mm[Hg] Sarina Casanova INSPECTOR [employer] Work Phone: [facility] 08-17-2024 15:46-0500 Heart rate 81 /min Sarina Casanova INSPECTOR [employer] Work Phone: [facility] 08-17-2024 15:46-0500 SaO2% (BldA) [Mass fraction] 94 % Sarina Casanova INSPECTOR [employer] Work Phone: [facility] 08-17-2024 15:46-0500 Systolic blood pressure 134 mm[Hg] Sarina Casanova INSPECTOR [employer] Work Phone: [facility] 06-05-2024 14:34-0400 Body height 181.6 cm Evelia Melchor PA Work Phone: [facility] 06-05-2024 14:34-0400 Body mass index (BMI) [Ratio] 41.07 kg/m2 Evelia LENTZ Work Phone: [facility] 06-05-2024 14:34-0400 Body temperature 100.51 [degF] Evelia Hemmer PA Work Phone: [facility] 06-05-2024 14:34-0400 Body weight 135.44 kg Evelia Hemmer PA Work Phone: [facility] 06-05-2024 14:34-0400 Diastolic blood pressure 84 mm[Hg] Evelia Hemmer PA Work Phone: [facility] 06-05-2024 14:34-0400 Heart rate 88 /min Evelia Hemmer PA Work Phone: [facility] 06-05-2024 14:34-0400 Respiratory rate 20 /min Evelia Hemmer PA Work Phone: [facility] 06-05-2024 14:34-0400 SaO2% (BldA) [Mass fraction] 94 % Evelia Hemmer PA Work Phone: [facility] 06-05-2024 14:34-0400 Systolic blood pressure 136 mm[Hg] Evelia Hemmer PA Work Phone: [facility] Healthcare Encounters Encounter Date Encounter Type Care Provider Facility Start: 07-09-2025 ambulatory NAVYA CALVIN [place]: 06-28-2025 End: 06-28-2025 Office outpatient visit 25 minutes Navya Calvin [employer] Work Phone: [facility] Comment on above: Daytime somnolence ( Primary Dx); Impotence of organic origin; Screening for prostate cancer; Screening for lipid disorders; Morbid (severe) obesity due to excess calories ([facility]); Obesity, class 3; Body mass index (BMI) 40.0-44.9, adult ([facility]-H[facility]); Fatty liver; Obstructive sleep apnea syndrome; Benign essential hypertension ; Shortness of breath; Acute non-recurrent pansinusitis Start: 06-28-2025 End: 06-28-2025 ambulatory NAVYA CALVIN Not Available Start: 06-28-2025 End: 06-28-2025 Bamboo flowsheet Navya Calvin [employer] [facility] Start: 06-28-2025 End: 06-28-2025 Bamboo flowsheet Navya Calvin NP Work Phone: [facility] Start: 04-04-2025 End: 04-04-2025 ambulatory Dann Zelaya [facility] Work Phone: Start: 04-04-2025 End: 04-04-2025 Departed Referred Dann Zelaya MD -Lab [facility] Work Phone: Start: 11-07-2024 End: 11-07-2024 Office outpatient visit 25 minutes Rosie Foreman MD Work Phone: [facility] Comment on above: Hidradenitis suppura tiva (Primary Dx); Seborrheic keratosis; Epidermal inclusion cyst Start: 11-07-2024 End: 11-07-2024 ambulatory ROSIE A PETITTI Not Available Start: 11-07-2024 End: 11-07-2024 Bamboo flowslance Foreman MD Work Phone: [facility] Start: 11-07-2024 End: 11-07-2024 Bamboo jaqui Foreman MD Work Phone: [facility] Start: 10-24-2024 End: 10-24-2024 Office outpatient new 30 minutes Rosie Foreman MD Work Phone: [facility] Comment on above: EIC (epidermal inclu dixie cyst) (Primary Dx); Pain Start: 10-24-2024 End: 10-24-2024 ambulatory ROSIE A PETITTI Not Available Start: 10-24-2024 End: 10-24-2024 Michaelboo flowslance Foreman MD Work Phone: [facility] Start: 10-24-2024 End: 10-24-2024 Bamboo flowslance Foreman MD Work Phone: [facility] Start: 10-12-2024 End: 10-12-2024 ambulatory SAMUEL LOPEZ Not Available Start: 10-12-2024 End: 10-12-2024 Office outpatient new 45 minutes Samuel Lopez DO Work Phone: [facility] Comment on above: Umbilical hernia wit hout obstruction and without gangrene Start: 09-20-2024 End: 09-20-2024 Office outpatient visit 25 minutes Sarina Casanova [employer] Work Phone: [facility] Comment on above: Umbilical hernia wit hout obstruction and without gangrene (Primary Dx); Open wound of left thigh, initial encounter; Acute left-sided low back pain with left-sided sciatica Start: 09-20-2024 End: 09-20-2024 ambulatory SARINA CASANOVA Not Available Start: 09-20-2024 End: 09-20-2024 Bamboo flowsheet Sarina Casanova [employer] Work Phone: [facility] Start: 09-20-2024 End: 09-20-2024 Bamboo flowsheet Sarina Casanova [employer] Work Phone: [facility] Start: 08-17-2024 End: 08-17-2024 Office outpatient visit 25 minutes Sarina Casanova [employer] Work Phone: [facility] Comment on above: Acute bronchitis, un specified organism (Primary Dx); Acute cough; Abnormal lung sounds; Impacted cerumen of right ear Start: 08-17-2024 End: 08-17-2024 ambulatory SARINA CASANOVA Not Available Start: 08-17-2024 End: 08-17-2024 Bamboo flowsheet Sarina Casanova INS[employer] Work Phone: [facility] Start: 08-17-2024 End: 08-17-2024 Bamboo flowsheet Sarina Casanova [employer] Work Phone: [facility] Start: 06-05-2024 End: 06-05-2024 Office outpatient visit 15 minutes Evelia Melchor PA Work Phone: [facility] Comment on above: Moderate persistent asthma with exacerbation (CMS/HCC) (Primary Dx); Acute cough Start: 06-05-2024 End: 06-05-2024 Bamboo flowsheet Evelia LENTZ Work Phone: [facility] Start: 06-05-2024 End: 06-07-2024 Bamboo flowsheet Evelia LENTZ Work Phone: [facility] Start: 06-05-2024 End: 06-07-2024 External Result Encounter Evelia LENTZ Work Phone: [facility] Unsolicited Start: 08-23-2022 End: 08-23-[address] DONAVAN WRAY Facility:[facility] Start: 09-11-2021 End: 09-11-[address] DONAVAN WRAY Facility:[facility] Procedures Date Procedure Procedure Detail Performing Clinician Start: 06-05-2024 COMMON RESPIRATORY BACTERIAL/VIRAL INFECTION (HTRX) Evelia LENTZ Work Phone: Plan of Treatment Date Care Activity Detail Author Start: 06-28-2025 End: 06-28-2025 Patient encounter procedure 06/28/2025 4:30 PM EDT Office Visit SHALINI Meyers [address] [facility] [address] [place] [id number] Navya Calvin NP [address] [place] [address] Arrived [facility] Comment on above: Arrived Start: 06-28-2025 End: 06-28-2026 Lipid 1996 panel - Serum or Plasma Lipid panel Lab Routine Screening for lipid disorders Expected: 06/28/2025 (Approximate), Expires: 06/28/2026 [facility] Comment on above: Expected: 06/28/2025 (Approximate), Expires: 06/28/2026 Start: 06-28-2025 End: 06-28-2026 Prostate specific Ag [Mass/volume] in Serum or Plasma PSA Lab Routine Screening for prostate cancer Expected: 06/28/2025 (Approximate), Expires: 06/28/2026 [facility] Work Phone: Comment on above: Expected: 06/28/2025 (Approximate), Expires: 06/28/2026 Start: 06-28-2025 End: 06-28-2026 Testosterone [Mass/volume] in Serum or Plasma Testosterone Lab Routine Daytime somnolence Impotence of organic origin Expected: 06/28/2025 (Approximate), Expires: 06/28/2026 [facility] Comment on above: Expected: 06/28/2025 (Approximate), Expires: 06/28/2026 Start: 06-28-2025 End: 06-28-2026 XR Chest 2 Views XR chest 2 views Imaging Routine Shortness of breath Expected: 06/28/2025, Expires: 06/28/2026 [facility] Comment on above: Expected: 06/28/2025 , Expires: 06/28/2026 Start: 06-11-2025 Influenza vaccination Influenza Vacc ine (#1) [facility] Start: 11-07-2024 End: 11-07-2024 Patient encounter procedure [facility] Comment on above: Arrived Start: 10-24-2024 End: 10-24-2024 Patient encounter procedure [facility] Comment on above: Open wound of left t high, initial encounter Start: 10-12-2024 End: 10-12-2024 Patient encounter procedure 10/12/2024 9:15 AM EST Consult [facility] [address] [id number] Samuel Lopez DO [address] [facility] [address] [place] [address] [facility] Start: 09-20-2024 End: 09-20-2024 Patient encounter procedure 09/20/2024 3:30 PM EST Office Visit [facility] [address] [facility] [address] [place] [id number] Sarina Casanova, [employer]PECT[employer] [address] [facility] [address] [place] [address] Arrived [facility] Comment on above: Arrived Start: 08-17-2024 End: 08-17-2024 Patient encounter procedure 08/17/2024 4:00 PM EST Office Visit [facility] [address] [place] [address] Sarina Casanova, INSPECTOR [employer] [address] [place] [address] Arrived [facility] Comment on above: Arrived Start: 06-11-2024 Influenza vaccination Influenza Vacc ine (#1) [facility] Start: 06-05-2024 End: 06-05-2024 Patient encounter procedure 06/05/2024 2:30 PM EDT Office Visit [facility] [address] [place] [address] Evelia Melchor PA [address] [place] [address] Arrived [facility] Comment on above: Arrived Start: 06-05-2024 End: 06-05-2025 COMMON RESPIRATORY BACTERIAL/VIRAL INFECTION (HTRX) COMMON RESPIRATORY BACTERIAL/VIRAL INFECTION (HTRX) Lab Routine Acute cough Expected: 06/05/2024 (Approximate), Expires: 06/05/2025 [facility] Work Phone: Comment on above: Expected: 06/05/2024 (Approximate), Expires: 06/05/2025 Start: 1980 Screening for malign ant neoplasm of colon [facility] Immunizations Immunization Date Immunization Notes Care Provider Fa [facility] 08-10-2023 influenza, injectabl e, quadrivalent, preservative free Evelia LENTZ Work Phone: [facility] Work Phone: 08-10-2023 influenza virus vaccine, unspecified formulation Evelia LENTZ Work Phone: [facility] 08-26-2022 influenza, injectabl e, quadrivalent, preservative free Evelia LENTZ Work Phone: [facility] 09-11-2021 diphtheria, tetanus toxoids and pertussis vaccine Evelia LENTZ Work Phone: [facility] 06-09-2021 influenza, injectabl e, quadrivalent, preservative free Evelia Hemmer PA Work Phone: [facility] 08-28-2020 Influenza, injectabl e, Madin Eleni Canine Kidney, preservative free, quadrivalent Evelia Hemmer PA Work Phone: [facility] 11-07-2019 Influenza, injectabl e, Madin Garfield Canine Kidney, preservative free, quadrivalent Evelia Hemmer PA Work Phone: [facility] 07-20-2017 seasonal influenza, intradermal, preservative free Evelia Hemmer PA Work Phone: [facility] Payers Date Payer Category Payer [facility] [id number] 2024 Unknown [facility] [id number] 2024-Present [phone] [id number] [place], [place] [id number] 2024 Unknown [id number] 1980 Unknown [id number] [id number] 1980 Unknown [id number] [id number] 1980 Unknown [id number]. 2.9 1980 Unknown [id number] [id number] 1980 Unknown [id number] 2.9 1980 Unknown [id number] [id number] 1980 Unknown [id number] [id number] 1980 Unknown [id number]. [id number] 1980 Unknown [id number] [id number] 1959 Self-pay Unknown [id number] [id number] Social History Date Type Detail Facility Start: 05-12-2023 Tobacco smoking status [facility] Occasional tobacco smoker [facility] History of tobacco use Cigarette Smoker [facility] Start: 05-12-2023 Tobacco use and exposure Smokeless tobacco non-user [facility] Start: 06-05-2024 End: 06-28-2025 Alcoholic beverage intake Current drinker of alcohol (finding) [facility] Start: 06-17-2023 End: 06-05-2024 Alcoholic beverage intake [facility] Start: 06-17-2023 End: 06-28-2025 Humiliation, Afraid, Rape, and Kick questionnaire [HARK] [facility] Within the last year , have you been afraid of your partner or ex-partner? Patient declined [facility] Within the last year , have you been raped or forced to have any kind of sexual activity by your partner or ex-partner? No [facility] Are you now , , , , never or living with a partner? Never [facility] How hard is it for y ou to pay for the very basics like food, housing, medical care, and heating Not very hard [facility] Do you feel stress - tense, restless, nervous, or anxious, or unable to sleep at night because your mind is troubled all the time - these days [OSQ] Only a little [facility] (I/We) worried wheth er (my/our) food would run out before (I/we) got money to buy more. Never true [facility] Start: 05-11-2023 Tobacco Comment Smokes 5 or less cigs a day [facility] Start: 05-11-2023 Alcohol Comment 2-3 times a week [facility] Start: 1980 Sex assigned at Not on file [facility] Start: 06-17-2023 Gender identity Identifies as male gender (finding) [facility] Start: 10-31-2017 Tobacco smoking status NHIS Smokes tobacco daily (finding) [facility] Sex Male (finding) [facility] Start: 1980 Sex Assigned At Male [facility] Functional Status Date Assessment Result Facility 06-28-2025 Patient Health Quest ionnaire 2 item (PHQ-2) [Reported] [facility] Clinical Notes 06-05-2024 to 06-28-2025 Navya Calvin, YOLANDA - 06/28/2025 4:30 PM Tim Foreman MD - 11/07/2024 3:45 PM Carlos Eduardo Foreman MD - 10/24/2024 3:30 PM Mauricio Lopez DO - 10/12/2024 9:15 AM EST Note Date & Type Note Facility 06-28-2025 History of Presen t illness Narrative Subjective Patient ID: Franco Vergara is a 45 y.o. male who presents for a 6 month follow up. Franco presents today for issue with falling a sleep while driving back in April. He is also having issues with his breathing, anxiety and his weight. He states that after he eat it feels like something gets caught in this throat and he will throw up his food. Over the past 2 weeks, how often have you been bothered by any of the following problems? Little interest or pleasure in doing things: Not at all Feeling down, depressed, or hopeless: Not at all Patient Health Questionnaire-2 Score: 0 Current Outpatient Medications on File Prior to Visit Medication Sig Dispense Refill albuterol HFA 90 mcg/act inhaler Inhale 2 puffs every 6 (six) hours if needed for wheezing or shortness of breath 18 g 11 amLODIPine (Norvasc) 10 MG tablet Take 1 tablet (10 mg) by mouth Daily 30 tablet 0 Chlorhexidine Gluconate (Hibiclens) 4 % solution Use in shower from the neck down at least 1-2x/week 532 mL 11 clindamycin (Cleocin T) 1 % lotion Apply thin later to affected areas on the body, once daily 120 mL 11 cyclobenzaprine (Flexeril) 10 MG tablet Take 1 tablet (10 mg) by mouth 3 (three) times a day as needed for muscle spasms for up to 10 days 30 tablet 0 doxycycline (Monodox) 100 MG capsule Take 1 capsule, by mouth, bid x 7 days (Patient not taking: Reported on 11/07/2024) 14 capsule 0 lisinopril-hydroCHLOROthiazide 20-12.5 MG tablet TAKE 1 TABLET BY MOUTH TWICE A DAY 180 tablet 4 magnesium 30 MG tablet Take 30 mg by mouth in the morning and 30 mg before bedtime. predniSONE (Deltasone) 20 MG tablet 3 tabs x 2 days, 2 tabs x 2 days, 1 1/2 tab x 2 days, 1 tab x 2 days, 1/2 tab x 2 days 5 tablet 0 sildenafil (Viagra) 100 MG tablet TAKE 1 TABLET BY MOUTH EVERY DAY NEEDED 3 tablet 11 Turmeric (QC TUMERIC COMPLEX PO) Take by mouth No current facility-administered medications on file prior to visit. I have reviewed and reconciled the history and medication list with the patient today. Allergies Allergen Reactions Penicillins Unknown unknown Social History Tobacco Use Smoking status: Some Days Types: Cigarettes Smokeless tobacco: Never Tobacco comments: Smokes 5 or less cigs a day Vaping Use Vaping status: Every Day Substance Use Topics Alcohol use: Yes Alcohol/week: 6.0 standard drinks of alcohol Types: 6 Standard drinks or equivalent per week Comment: 2-3 times a week Drug use: Never Family History Problem Relation Name Age of Onset Hypertension Mother Breast cancer Father's Sister Breast cancer Paternal Grandmother Cancer Paternal Grandfather Pancreatic cancer Neg Hx Ovarian cancer Neg Hx Colon cancer Neg Hx Past Medical History: Diagnosis Date CPAP (continuous positive airway pressure) dependence 05/09/2019 titration @ 14 cm H20 ED (erectile dysfunction) HTN (hypertension) Personal history of other medical treatment 04/24/2019 AHI 43, Low SpO2 75 Sleep apnea Past Surgical History: Procedure Laterality Date CYST REMOVAL 11/27/2019 Dr. Stephens, Excision of scrotal and penile sebaceous cyst and condyloma TONSILLECTOMY Visit Vitals Smoking Status Some Days Review of Systems Constitutional: Positive for fatigue and unexpected weight change. HENT: Negative. Eyes: Negative. Respiratory: Positive for shortness of breath. Cardiovascular: Negative. Gastrointestinal: Negative. Genitourinary: Negative. Musculoskeletal: Negative. Skin: Negative. Psychiatric/Behavioral: Negative. All other systems reviewed and are negative. Objective Physical Exam Vitals reviewed. Constitutional: Appearance: Normal appearance. HENT: Head: Normocephalic. Right Ear: A middle ear effusion is present. Left Ear: A middle ear effusion is present. Nose: Nose normal. Mouth/Throat: Mouth: Mucous membranes are moist. Pharynx: Oropharynx is clear. Eyes: Conjunctiva/sclera: Conjunctivae normal. Cardiovascular: Rate and Rhythm: Normal rate and regular rhythm. Pulmonary: Effort: Pulmonary effort is normal. Comments: Harsh lung sounds Skin: General: Skin is warm and dry. Neurological: General: No focal deficit present. Mental Status: He is alert and oriented to person, place, and time. Psychiatric: Mood and Affect: Mood normal. Behavior: Behavior normal. Thought Content: Thought content normal. Judgment: Judgment normal. Assessment/Plan Diagnoses and all orders for this visit: Daytime somnolence - Testosterone; Future Await testing. He just started wearing his CPAP again Impotence of organic origin - Testosterone; Future Await lab Screening for prostate cancer - PSA; Future Await lab Screening for lipid disorders - Lipid panel; Future Await lab Morbid (severe) obesity due to excess calories ([facility]) - Tirzepatide-Weight Management (Zepbound) 2.5 MG/0.5ML solution auto-injector; Inject 2.5 mg under the skin 1 (one) time per week Discussed goal of BMI < 30. Advised on weight loss options. Encouraged diet and exercise. Discussed with patient appropriate lifestyle modification changes necessary for weight management, heart healthy eating and overall health promotion. Discussed minimizing high carb, high sugar, high sodium, portion control, and processed foods while making healthy choice replacements. Additionally discussed recommendations of 30 minutes of aerobic exercise at least 5 days per week, that includes, walking, and chair exercises. . Instructed importance of drinking adequate water consumption (if not on fluid restriction) with minimal sugar and caffiene. Obesity, class 3 - Ambulatory referral to Nutrition Services; Future - Tirzepatide-Weight Management (Zepbound) 2.5 MG/0.5ML solution auto-injector; Inject 2.5 mg under the skin 1 (one) time per week Discussed goal of BMI < 30. Advised on weight loss options. Encouraged diet and exercise. Discussed with patient appropriate lifestyle modification changes necessary for weight management, heart healthy eating and overall health promotion. Discussed minimizing high carb, high sugar, high sodium, portion control, and processed foods while making healthy choice replacements. Additionally discussed recommendations of 30 minutes of aerobic exercise at least 5 days per week, that includes, walking, and chair exercises. . Instructed importance of drinking adequate water consumption (if not on fluid restriction) with minimal sugar and caffiene. Body mass index (BMI) 40.0-44.9, adult ([facility]) - Ambulatory referral to Nutrition Services; Future - Tirzepatide-Weight Management (Zepbound) 2.5 MG/0.5ML solution auto-injector; Inject 2.5 mg under the skin 1 (one) time per week Discussed goal of BMI < 30. Advised on weight loss options. Encouraged diet and exercise. Discussed with patient appropriate lifestyle modification changes necessary for weight management, heart healthy eating and overall health promotion. Discussed minimizing high carb, high sugar, high sodium, portion control, and processed foods while making healthy choice replacements. Additionally discussed recommendations of 30 minutes of aerobic exercise at least 5 days per week, that includes, walking, and chair exercises. . Instructed importance of drinking adequate water consumption (if not on fluid restriction) with minimal sugar and caffiene. 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 Continue with current medications and I will continue to monitor. Goal BP remains less than 130/80. Shortness of breath - XR chest 2 views; Future This is a chronic medical condition that is stable since last assessment. No changes in treatment are suggested at this time. Acute non-recurrent pansinusitis - cefdinir (Omnicef) 300 MG capsule; Take 1 capsule (300 mg) by mouth in the morning and 1 capsule (300 mg) before bedtime. Do all this for 10 days. - methylPREDNISolone (Medrol Dospak) 4 MG tablets; Follow schedule on package instructions Start the above as directed. Reviewed potential s/e with patient. Encouraged probiotic while on antibiotic. Increase water intake, get plenty of rest. Can take OTC allergy medication for symptomatic relief. Tylenol/Motrin prn. Follow up if no improvement in one week. No motrin, naproxin, aleve while on the steroids. Take steroids with food. If there is no improvement, come back to the office for further treatment. No follow-ups on file. documented in this encounter [facility] 11-07-2024 History of Presen t illness Narrative Follow up Diagnosis: EIC vs HS Location: left anterior thigh Last visit: 2 weeks ago Symptoms: draining Status: improving Current treatment: doxycycline 100 mg bid x 7 days- caused bloody stool, has since resolved Lesions: Location: dorsal hands Duration: years Quality: denies itch Associated symptoms: rough Treatments: none Rash Location: back Duration: years Quality: denies itch Associated symptoms: red bumps sometimes with pustules Treatments tried: OTC acne wash- helped at first but then was too drying and caused another rash Current treatments: none Established patient All pertinent medical history, medications, and allergies were reviewed. General Exam: alert, oriented to person, place, and time, normal affect, well appearing Unaccompanied A focused exam completed based on patient reported problems, see below: 1. Seborrheic keratosis Left Hand - Posterior Stuck on verrucous, chilel-brown papules and plaques. Patient was counseled regarding these benign growths. Removal is normally not necessary, but they may be removed if they are symptomatic or for cosmetic reasons. 2. Epidermal inclusion cyst Left Thigh - Anterior 2.5 x 2.0 cm Erythematous, subcutaneous, mobile nodule without central punctum. Improving since last visit. Ddx includes HS lesion Offered punch deroofing to encourage further drainage, patient declined, reports it has been draining on its own. Patient elected for observation. Notify office if lesion is enlarging or becomes symptomatic. Instructed to notify PCP if bloody stool reoccurs. 3. Hidradenitis suppurativa Torso - Posterior (Back) Erythematous nodules, double comedones, and scarring. Flaring today The patient was counseled that hidradenitis is a chronic inflammatory disorder of the hair follicles and sweat glands. There appears to be a genetic predisposition for this condition. Quitting smoking, weight loss, and wearing looser fitting clothing may help decrease the severity/amount of flares. The patient was informed that treatment can be difficult and depends on the severity of the condition. Start Hibiclens wash 2-3x/week in shower from the neck down and clindamycin lotion every day as needed for flares, hold if clear. Notify clinic if worsening despite treatment. Related Medications Chlorhexidine Gluconate (Hibiclens) 4 % solution Use in shower from the neck down at least 1-2x/week clindamycin (Cleocin T) 1 % lotion Apply thin later to affected areas on the body, once daily Next Visit: prn for any new/changing lesions documented in this encounter [facility] 10-24-2024 History of Presen t illness Narrative Images from the original note were not included. Lesions: Location: left thigh, right upper back Duration: years Quality: thigh painful x few days, back has done the same in the past Associated symptoms: draining, red Treatments: none. In the past has needed antibiotics when flared. Reports he had a cyst on the thigh for years that is recently inflamed today New patient, New patient, referred by Sarina Casanova NP All pertinent medical history, medications, and allergies were reviewed. General Exam: alert, oriented to person, place, and time, normal affect, well appearing A focused exam completed based on patient reported problems, see below: 1. EIC (epidermal inclusion cyst) Left Thigh - Anterior 2.5 x 2.0 cm, erythematous, subcutaneous nodule. Patient was counseled regarding cysts. Although benign, cysts often slowly enlarge and can occasionally become inflamed. Discussed the only way to definitively diagnose the lesion would be to have it removed and tested. Start doxycycline 100 mg bid x 7 days. Plan to recheck in 2 weeks. Recommend patient take medication with food but not dairy, sit up for 30 min after taking medication. Notify clinic if flaring despite treatment or if side effects develop. doxycycline (Monodox) 100 MG capsule - Left Thigh - Anterior Take 1 capsule, by mouth, bid x 7 days Related Procedures Ambulatory referral to Dermatology 2. Pain Left Thigh - Anterior Next Visit: 2 weeks documented in this encounter [facility] 10-12-2024 History of Presen t illness Narrative Arlen Vergara 1980 Arlen Vergara is a 44 y.o. male presents with chief complaint of Umbilical hernia consult HPI: HPI rFanco states a few weeks back he wok in the middle of the night with sharp pain around the umbilicus. He was seen by a [employer] and was told he may have a small hernia. He was referred to our office for evaluation. He states he feels like he is bloated all the time, but he doesn't feel any bulge in the umbilical area. SUBJECTIVE: MEDICATIONS: ALLERGIES Current Outpatient Medications Medication Instructions albuterol HFA 90 mcg/act inhaler 2 puffs, Inhalation, Every 6 hours PRN amLODIPine (NORVASC) 10 mg, Oral, Daily cyclobenzaprine (FLEXERIL) 10 mg, Oral, 3 times daily PRN lisinopril-hydroCHLOROthiazide 20-12.5 MG tablet 1 tablet, Oral, 2 times daily predniSONE (Deltasone) 20 MG tablet 3 tabs x 2 days, 2 tabs x 2 days, 1 1/2 tab x 2 days, 1 tab x 2 days, 1/2 tab x 2 days sildenafil (VIAGRA) 100 mg, Oral, Daily PRN Allergies Allergen Reactions Penicillins Unknown unknown PAST MEDICAL HISTORY: SOCIAL HISTORY SURGICAL HISTORY: Past Medical History: Diagnosis Date CPAP (continuous positive airway pressure) dependence 05/09/2019 titration @ 14 cm H20 ED (erectile dysfunction) HTN (hypertension) ([facility]) Personal history of other medical treatment 04/24/2019 AHI 43, Low SpO2 75 Sleep apnea Social History Tobacco Use Smoking status: Some Days Types: Cigarettes Smokeless tobacco: Never Tobacco comments: Smokes 5 or less cigs a day Vaping Use Vaping status: Every Day Substance Use Topics Alcohol use: Yes Alcohol/week: 6.0 standard drinks of alcohol Types: 6 Standard drinks or equivalent per week Comment: 2-3 times a week Drug use: Never Past Surgical History: Procedure Laterality Date CYST REMOVAL 11/27/2019 Dr. Stephens, Excision of scrotal and penile sebaceous cyst and condyloma TONSILLECTOMY FAMILY HISTORY Family History Problem Relation Name Age of Onset Hypertension Mother Cancer Paternal Grandmother Cancer Paternal Grandfather Cancer Father's Sister REVIEW OF SYMPTOMS: Review of Systems Constitutional: Negative for activity change. HENT: Positive for tinnitus. Negative for hearing loss and voice change. Respiratory: Positive for shortness of breath. Cardiovascular: Negative for chest pain. Gastrointestinal: Negative for abdominal distention, diarrhea, nausea and vomiting. Musculoskeletal: Positive for arthralgias. Neurological: Positive for headaches. Negative for dizziness and seizures. Psychiatric/Behavioral: The patient is nervous/anxious. All other systems reviewed and are negative. OBJECTIVE: Visit Vitals BP (!) 148/98 Ht 5' 11.5 Wt 317 lb BMI 43.60 kg/m Smoking Status Some Days BSA 2.7 m Physical Exam Vitals reviewed. HENT: Head: Normocephalic. Eyes: Pupils: Pupils are equal, round, and reactive to light. Cardiovascular: Rate and Rhythm: Normal rate and regular rhythm. Pulmonary: Effort: Pulmonary effort is normal. Abdominal: General: Bowel sounds are normal. Palpations: Abdomen is soft. Hernia: A hernia is present. Hernia is present in the umbilical area. Comments: He has a very tiny 3 mm facial defect in the center of the umbilicus, non tender Musculoskeletal: General: Normal range of motion. Skin: General: Skin is warm. Neurological: General: No focal deficit present. Mental Status: He is alert. ASSESSMENT AND PLAN: Assessment/Plan Problem List Items Addressed This Visit Umbilical hernia without obstruction and without gangrene Franco is morbidly obese and has SOB with minimal exertion. He states he has gained weight and is the largest he has ever been. He denies any ongoing umbilical pain. The hemia defect is very tiny and I feel his risk of surgical complications at this time outweighs the benefits of the hernia repair. I suggested he lose weight before we consider surgery. I'll see him PRN documented in this encounter [facility] 09-20-2024 History of Presen t illness Narrative Images from the original note were not included. Subjective Patient ID: Franco Vergara is a 44 y.o. male who presents for stoamach pain Franco presents today with stomach pain when he lays down at night that is burning and wakes him up every 20-30 min. Current Outpatient Medications on File Prior to Visit Medication Sig Dispense Refill albuterol HFA 90 mcg/act inhaler Inhale 2 puffs every 6 (six) hours if needed for wheezing or shortness of breath 18 g 11 amLODIPine (Norvasc) 10 MG tablet TAKE 1 TABLET BY MOUTH EVERY DAY 90 tablet 4 lisinopril-hydroCHLOROthiazide 20-12.5 MG tablet TAKE 1 TABLET BY MOUTH TWICE A DAY 180 tablet 4 sildenafil (Viagra) 100 MG tablet TAKE 1 TABLET BY MOUTH EVERY DAY NEEDED 3 tablet 11 No current facility-administered medications on file prior to visit. I have reviewed and reconciled the history and medication list with the patient today. Allergies Allergen Reactions Penicillins Unknown unknown Social History Tobacco Use Smoking status: Some Days Types: Cigarettes Smokeless tobacco: Never Tobacco comments: Smokes 5 or less cigs a day Vaping Use Vaping status: Every Day Substance Use Topics Alcohol use: Yes Alcohol/week: 6.0 standard drinks of alcohol Types: 6 Standard drinks or equivalent per week Comment: 2-3 times a week Drug use: Never Family History Problem Relation Name Age of Onset Hypertension Mother Cancer Paternal Grandmother Cancer Paternal Grandfather Cancer Father's Sister Past Medical History: Diagnosis Date CPAP (continuous positive airway pressure) dependence 05/09/2019 titration @ 14 cm H20 ED (erectile dysfunction) HTN (hypertension) ([facility]) Personal history of other medical treatment 04/24/2019 AHI 43, Low SpO2 75 Sleep apnea Past Surgical History: Procedure Laterality Date CYST REMOVAL 11/27/2019 Dr. Stephens, Excision of scrotal and penile sebaceous cyst and condyloma Visit Vitals Ht 5' 11 BMI 41.42 kg/m Smoking Status Some Days BSA 2.6 m Review of Systems Constitutional: Negative. HENT: Negative. Eyes: Negative. Respiratory: Negative. Cardiovascular: Negative. Gastrointestinal: Positive for abdominal pain. Genitourinary: Negative. Musculoskeletal: Positive for back pain and myalgias. Skin: Positive for wound (lt thigh). Neurological: Negative. Psychiatric/Behavioral: Negative. Endocrine: Negative. Allergic/Immunologic: Positive for immunocompromised state. Objective Physical Exam Vitals reviewed. Constitutional: Appearance: He is obese. HENT: Head: Normocephalic and atraumatic. Right Ear: External ear normal. Left Ear: External ear normal. Nose: Nose normal. Mouth/Throat: Mouth: Mucous membranes are moist. Eyes: Conjunctiva/sclera: Conjunctivae normal. Cardiovascular: Rate and Rhythm: Normal rate and regular rhythm. Heart sounds: Normal heart sounds. Pulmonary: Effort: Pulmonary effort is normal. Breath sounds: Normal breath sounds. Abdominal: Tenderness: There is abdominal tenderness. There is no right CVA tenderness, left CVA tenderness, guarding or rebound. Hernia: A hernia (umbillical area) is present. Comments: obese Musculoskeletal: General: Normal range of motion. Cervical back: Normal range of motion and neck supple. Skin: General: Skin is warm and dry. Comments: Non healing wound left thigh Neurological: General: No focal deficit present. Mental Status: He is alert and oriented to person, place, and time. Psychiatric: Mood and Affect: Mood normal. Behavior: Behavior normal. Thought Content: Thought content normal. Judgment: Judgment normal. Assessment/Plan 1. Umbilical hernia without obstruction and without gangrene (Primary) He pt presents with complaint of abdominal pain at the umbilicus. He reports that the pain is very mild but his is concerned. There is concern for a small umbilical hernia. Referral to have this evaluated is sent per his request today. - Ambulatory referral to General Surgery; Future 2. Open wound of left thigh, initial encounter He presents with a wound to the thigh that he reports picking at the area often. He reports squeezing it to make it bleed. He is requesting to be referred to dermatology today. A referral is sent. - Ambulatory referral to Dermatology; Future 3. Acute left-sided low back pain with left-sided sciatica Discussed diagnosis, use of prednisone, flexeril and their most common side effects. He is advised to continue ice to the area alternating with heat, rest the area, continue with gentle stretching exercises when able and follow up if continued or worsening symptoms. - predniSONE (Deltasone) 20 MG tablet; 3 tabs x 2 days, 2 tabs x 2 days, 1 1/2 tab x 2 days, 1 tab x 2 days, 1/2 tab x 2 days Dispense: 5 tablet; Refill: 0 - cyclobenzaprine (Flexeril) 10 MG tablet; Take 1 tablet (10 mg) by mouth 3 (three) times a day as needed for muscle spasms for up to 10 days Dispense: 30 tablet; Refill: 0 No follow-ups on file. documented in this encounter [facility] 09-20-2024 Instructions Sarina Casanova NP - 09/20/2024 3:30 PM EST Prednisone is added today. Referral to dermatology sent. Referral to General surgery sent. documented in this encounter [facility] 08-17-2024 History of Presen t illness Narrative Subjective Patient ID: Franco Vergara is a 44 y.o. male who presents for Sinusitis. Sinus Pain Patient complains of congestion, cough, mouth breathing, nasal congestion, post nasal drip, and sinus pressure. Onset of symptoms was 3 weeks ago. Symptoms have been gradually worsening since that time. Sinusitis This is a recurrent problem. The current episode started 1 to 4 weeks ago. The problem has been gradually worsening since onset. Associated symptoms include congestion, coughing, headaches, a hoarse voice and sinus pressure. Past treatments include oral decongestants and acetaminophen. The treatment provided no relief. Current Outpatient Medications on File Prior to Visit Medication Sig Dispense Refill albuterol HFA 90 mcg/act inhaler Inhale 2 puffs every 6 (six) hours if needed for wheezing or shortness of breath 18 g 11 amLODIPine (Norvasc) 10 MG tablet TAKE 1 TABLET BY MOUTH DAILY 100 tablet 3 lisinopril-hydroCHLOROthiazide 20-12.5 MG tablet TAKE 1 TABLET BY MOUTH TWICE A DAY 200 tablet 3 sildenafil (Viagra) 100 MG tablet TAKE 1 TABLET BY MOUTH EVERY DAY NEEDED 3 tablet 11 No current facility-administered medications on file prior to visit. I have reviewed and reconciled the history and medication list with the patient today. Allergies Allergen Reactions Penicillins Unknown unknown Social History Tobacco Use Smoking status: Some Days Types: Cigarettes Smokeless tobacco: Never Tobacco comments: Smokes 5 or less cigs a day Substance Use Topics Alcohol use: Yes Alcohol/week: 6.0 standard drinks of alcohol Types: 6 Standard drinks or equivalent per week Comment: 2-3 times a week Drug use: Never Family History Problem Relation Name Age of Onset Hypertension Mother Cancer Paternal Grandmother Cancer Paternal Grandfather Cancer Father's Sister Past Medical History: Diagnosis Date CPAP (continuous positive airway pressure) dependence 05/09/2019 titration @ 14 cm H20 ED (erectile dysfunction) HTN (hypertension) ([facility]) Personal history of other medical treatment 04/24/2019 AHI 43, Low SpO2 75 Sleep apnea Past Surgical History: Procedure Laterality Date CYST REMOVAL 11/27/2019 Dr. Stephens, Excision of scrotal and penile sebaceous cyst and condyloma Visit Vitals Ht 5' 11.5 BMI 41.07 kg/m Smoking Status Some Days BSA 2.61 m Review of Systems Constitutional: Negative. HENT: Positive for congestion, hoarse voice, sinus pressure and voice change. Respiratory: Positive for cough and wheezing. Neurological: Positive for light-headedness and headaches. All other systems reviewed and are negative. Objective Physical Exam Vitals and nursing note reviewed. Constitutional: Appearance: He is obese. He is ill-appearing. HENT: Head: Normocephalic and atraumatic. Right Ear: There is impacted cerumen. Left Ear: Tympanic membrane normal. Ears: Comments: Left ear canal erythema present Nose: Congestion present. Mouth/Throat: Mouth: Mucous membranes are moist. Eyes: Extraocular Movements: Extraocular movements intact. Pupils: Pupils are equal, round, and reactive to light. Cardiovascular: Rate and Rhythm: Normal rate and regular rhythm. Pulses: Normal pulses. Heart sounds: Normal heart sounds. Pulmonary: Effort: Pulmonary effort is normal. Breath sounds: Rhonchi present. Abdominal: General: Bowel sounds are normal. Palpations: Abdomen is soft. Musculoskeletal: General: Normal range of motion. Cervical back: Normal range of motion. Skin: General: Skin is warm and dry. Neurological: General: No focal deficit present. Mental Status: He is alert. Psychiatric: Mood and Affect: Mood normal. Behavior: Behavior normal. Assessment/Plan Diagnoses and all orders for this visit: Acute bronchitis, unspecified organism - doxycycline (Vibra-Tabs) 100 MG tablet; Take 1 tablet (100 mg) by mouth in the morning and 1 tablet (100 mg) before bedtime. Do all this for 10 days. Take with a full glass of water and do not lie down for at least 30 minutes after.. - benzonatate (Tessalon Perles) 100 MG capsule; Take 1 capsule (100 mg) by mouth 3 (three) times a day as needed for cough for up to 7 days Do not crush or chew. - methylPREDNISolone (Medrol Dospak) 4 MG tablets; Follow schedule on package instructions Acute cough - doxycycline (Vibra-Tabs) 100 MG tablet; Take 1 tablet (100 mg) by mouth in the morning and 1 tablet (100 mg) before bedtime. Do all this for 10 days. Take with a full glass of water and do not lie down for at least 30 minutes after.. - benzonatate (Tessalon Perles) 100 MG capsule; Take 1 capsule (100 mg) by mouth 3 (three) times a day as needed for cough for up to 7 days Do not crush or chew. - methylPREDNISolone (Medrol Dospak) 4 MG tablets; Follow schedule on package instructions Abnormal lung sounds - doxycycline (Vibra-Tabs) 100 MG tablet; Take 1 tablet (100 mg) by mouth in the morning and 1 tablet (100 mg) before bedtime. Do all this for 10 days. Take with a full glass of water and do not lie down for at least 30 minutes after.. - benzonatate (Tessalon Perles) 100 MG capsule; Take 1 capsule (100 mg) by mouth 3 (three) times a day as needed for cough for up to 7 days Do not crush or chew. - methylPREDNISolone (Medrol Dospak) 4 MG tablets; Follow schedule on package instructions Impacted cerumen of right ear -flushed and cleaned today by nursing staff Follow up if symptoms do not improve after above treatment plan complete. Jessica Gonsalez NP documented in this encounter [facility] 06-05-2024 History of Presen t illness Narrative Images from the original note were not included. Subjective Patient ID: Franco Vergara is a 44 y.o. male who presents for bronchitis. Franco is present today for follow up bronchitis/abnormal lung sounds. He was seen on 05/18/24 by Pineda Pro. Bronchitis, SOB, Rx'd Benzonatate, Guaifenesin-Codeine, Levofloxacin, Albuterol inhaler, Prednisone. Seen again on 05/25/24 Dx Abnormal lung sounds, ordered CXR and it was normal. Today admits fatigue, wheezing, SOB, cough off/on yellow phlegm. States the medicine did help but it did not completely get better. He states he is sweating a lot just from his head. Current Outpatient Medications on File Prior to Visit Medication Sig Dispense Refill albuterol HFA 90 mcg/act inhaler Inhale 2 puffs every 6 (six) hours if needed for wheezing or shortness of breath (Patient not taking: Reported on 06/05/2024) 18 g 11 amLODIPine (Norvasc) 10 MG tablet TAKE 1 TABLET BY MOUTH DAILY 100 tablet 3 lisinopril-hydroCHLOROthiazide 20-12.5 MG tablet TAKE 1 TABLET BY MOUTH TWICE A DAY 200 tablet 3 [DISCONTINUED] baclofen (Lioresal) 10 MG tablet TAKE 1 TABLET BY MOUTH IN THE MORNING, EVENING AND BEFORE BEDTIME 270 tablet 1 [DISCONTINUED] cyclobenzaprine (Flexeril) 10 MG tablet Take 1 tablet (10 mg) by mouth 3 (three) times a day as needed for muscle spasms for up to 10 days. 30 tablet 0 [DISCONTINUED] fluticasone (Flonase) 50 MCG/ACT nasal spray Administer 1 spray into each nostril in the morning. [DISCONTINUED] hydroCHLOROthiazide (HYDRODiuril) 12.5 MG tablet TAKE 1 TABLET BY MOUTH EVERY DAY IN THE MORNING (12.5 MG) 100 tablet 3 [DISCONTINUED] predniSONE (Deltasone) 10 MG tablet Take 4 tablets (40 mg) by mouth Daily for 4 days, THEN 3 tablets (30 mg) Daily for 4 days, THEN 2 tablets (20 mg) Daily for 4 days, THEN 1 tablet (10 mg) Daily for 4 days. 40 tablet 0 [DISCONTINUED] sildenafil (Viagra) 100 MG tablet TAKE 1 TABLET ONCE A DAY NEEDED 6 tablet 11 No current facility-administered medications on file prior to visit. Allergies Allergen Reactions Penicillins Unknown unknown Social History Tobacco Use Smoking status: Some Days Types: Cigarettes Smokeless tobacco: Never Tobacco comments: Smokes 5 or less cigs a day Substance Use Topics Alcohol use: Yes Alcohol/week: 6.0 standard drinks of alcohol Types: 6 Standard drinks or equivalent per week Comment: 2-3 times a week Drug use: Never Family History Problem Relation Name Age of Onset Hypertension Mother Cancer Paternal Grandmother Cancer Paternal Grandfather Cancer Father's Sister Past Medical History: Diagnosis Date CPAP (continuous positive airway pressure) dependence 05/09/2019 titration @ 14 cm H20 ED (erectile dysfunction) HTN (hypertension) ([facility]) Personal history of other medical treatment 04/24/2019 AHI 43, Low SpO2 75 Sleep apnea Past Surgical History: Procedure Laterality Date CYST REMOVAL 11/27/2019 Dr. Stephens, Excision of scrotal and penile sebaceous cyst and condyloma Visit Vitals BP 136/84 Pulse 88 Temp 100.5 F Resp 20 Ht 5' 11.5 Wt 298 lb 9.6 oz SpO2 94% BMI 41.07 kg/m Smoking Status Some Days BSA 2.61 m Review of Systems Constitutional: Positive for fatigue. Negative for chills and fever. HENT: Positive for congestion and postnasal drip. Respiratory: Positive for cough, shortness of breath and wheezing. Cardiovascular: Negative for chest pain, palpitations and leg swelling. Gastrointestinal: Negative for abdominal pain, constipation, diarrhea, nausea and vomiting. Skin: Negative for rash. Objective Physical Exam Constitutional: General: He is not in acute distress. Appearance: He is obese. He is ill-appearing and diaphoretic. HENT: Head: Normocephalic and atraumatic. Right Ear: There is impacted cerumen. Left Ear: Tympanic membrane is scarred. Nose: Right Turbinates: Swollen. Left Turbinates: Swollen. Mouth/Throat: Mouth: Mucous membranes are moist. Pharynx: Posterior oropharyngeal erythema present. Eyes: General: No scleral icterus. Cardiovascular: Rate and Rhythm: Normal rate and regular rhythm. Heart sounds: No murmur heard. Pulmonary: Effort: Pulmonary effort is normal. No respiratory distress. Breath sounds: Decreased air movement present. Examination of the right-upper field reveals wheezing. Examination of the left-upper field reveals wheezing. Wheezing present. No rhonchi or rales. Comments: Cough with deep inspiration. Soft expiratory wheezes upper lobes. Occasionally pauses mid-sentence to take a breath. Musculoskeletal: General: No swelling. Lymphadenopathy: Cervical: No cervical adenopathy. Skin: General: Skin is warm. Neurological: General: No focal deficit present. Mental Status: He is alert and oriented to person, place, and time. Psychiatric: Mood and Affect: Mood normal. Behavior: Behavior normal. Assessment/Plan Diagnoses and all orders for this visit: Moderate persistent asthma with exacerbation ([facility]) - guaiFENesin-codeine (Robitussin-AC) 100-10 MG/5ML syrup; Take 10 mL by mouth every 6 (six) hours if needed for cough for up to 7 days - doxycycline (Vibramycin) 100 MG capsule; Take 1 capsule (100 mg) by mouth in the morning and 1 capsule (100 mg) before bedtime. Do all this for 7 days. Take with at least 8 ounces (large glass) of water, do not lie down for 30 minutes after. Refill provided on cough medication to use as needed. Will have patient start Doxycycline for different respiratory tract coverage. Pt is to stay hydrated, get plenty of rest. May need to repeat the CXR if symptoms persist/worsen. Acute cough - COMMON RESPIRATORY BACTERIAL/VIRAL INFECTION (HTRX); Future Due to duration and severity of symptoms respiratory swab obtained and sent out for further evaluation. Will notify pt of the results once received. No follow-ups on file. documented in this encounter [facility] Evaluation note Diagnosis Acute bronchitis, unspecified organism- Primary Acute cough Abnormal lung sounds Abnormal chest sounds Impacted cerumen of right ear Impacted cerumen [facility] Diagnosis Moderate persistent asthma with exacerbation (CMS/HCC)- Primary Unspecified asthma, with exacerbation Acute cough documented in this encounter [facility]* Diagnosis Umbilical hernia without obstruction and without gangrene- Primary Open wound of left thigh, initial encounter Acute left-sided low back pain with left-sided sciatica documented in this encounter [facility]* Diagnosis Umbilical hernia without obstruction and without gangrene documented in this encounter [facility]* Diagnosis EIC (epidermal inclusion cyst)- Primary Sebaceous cyst Pain Generalized pain documented in this encounter [facility]* Diagnosis Hidradenitis suppurativa- Primary Hidradenitis Seborrheic keratosis Epidermal inclusion cyst Sebaceous cyst documented in this encounter [facility] HealthcareEvaluation noteNo assessment information availableK[facility] Work Phone: Evaluation note* Diagnosis Daytime somnolence- Primary Impotence of organic origin Screening for prostate cancer Special screening for malignant neoplasm of prostate Screening for lipid disorders Morbid (severe) obesity due to excess calories (CMS-HCC) Obesity, class 3 Body mass index (BMI) 40.0-44.9, adult (CMS-HCC) Fatty liver Other chronic nonalcoholic liver disease Obstructive sleep apnea syndrome Obstructive sleep apnea (adult) (pediatric) Benign essential hypertension Essential hypertension, benign Shortness of breath Acute non-recurrent pansinusitis [facility])No reason for referral information availableK[facility] Work Phone: Summary Purpose Family History No Family History Records Found Relationship Condition Age at Onset Recorded Date/T sandra mother Hypertension Unknown Advance Directives No Advanced Directives Records Found Advance Directive Response Recorded Date/ Time Advance Directives No April 04 6:23pm Hospital Course Note [facility] SURGERY Clinical Discharge Summary PERSON INFORMATION Name ARLEN VERGARA Age 39 Years 1980 Sex MALE Language Cypriot PCP DONAVAN WRAY MD Marital Status Single Med Service Ambulatory Surgery Acct# Arrival 11/27/2019 11:16:46 Visit Reason SURGERY - E/O SCROTAL AND PENILE CYST Acuity LOS 018 02:38 Address: [address] [place] [address] Comment: PROVIDER INFORMATION VITALS INFORMATION Vital Sign Triage Latest Temp Oral Temp Temporal Temp Intravascular Temp Axillary Temp Rectal 02 Sat 99 % 99 % Respiratory Rate Peripheral Pulse Rate Apical Heart Rate Blood Pressure / 89 mmHg / 89 mmHg Comment: MEDICAL INFORMATION Allergy Info: No Known Medication Allergies Prescriptions Given: amLODIPine (amLODIPine 10 mg oral tablet) 1 tab(s) Oral every day. cephalexin (Keflex 500 mg oral capsule) 1 cap(s) Oral Every 8 hours. Refills: 0. hydrochlorothiazide-lisinopril (hydrochlorothiazide-lisinopril 12.5 mg-20 mg oral tablet) 1 ta (more content not included)... Chief Complaint and Reason for Visit Chief Complaint Admit Date D49.2 April 04, 2025 11:4 6am Additional Source Comments (unrecognized sect ion and content) No Status Records FoundNo Status Records FoundNo Status Records FoundNo Status Records FoundNo Status Records FoundNo Status Records Found INFORMATION SOURCE (unrecogn ized section and content) DATE CREATED AUTHOR 12/04/2019 [facility] DATE CREATED AUTHOR AUTHOR'S ORGANIZ ATION 08/24/2022 [facility] DATE CREATED AUTHOR AUTHOR'S ORGANIZ ATION 09/01/[address] [facility] dical Specialist DATE CREATED AUTHOR AUTHOR'S ORGANIZ ATION 05/03/2025 [facility] DATE CREATED AUTHOR AUTHOR'S ORGANIZ ATION 06/30/[address] [facility] dical Specialists EPIC DATE CREATED AUTHOR AUTHOR'S ORGANIZ ATION 07/15/2025 Eliecer Thorpe [facility] Care Teams (unrecognized sec tion and content) Lamination Operator Relationship Specialty Start Date End Date Donavan Wray MD [address] [facility] [address] [place] [address] PCP - General Family Medicine 02/16/23 Navya Calvin NP [address] [facility] [address] [place] [address] PCP - [employer] 07/11/24 Lamination Operator Relationship Specialty Start Date End Date Donavan Wray MD [address] [place] [address] PCP - General Family Medicine 02/16/23 Navya Calvin, INSPECTOR [employer] [address] [place] [address] PCP - [employer] 07/11/24 Lamination Operator Relationship Specialty Start Date End Date Donavan Wray MD [address] [place] [address] PCP - General Family Medicine 02/16/23 Lamination Operator Relationship Specialty Start Date End Date Donavan Wray MD [address] [place] [address] PCP - General Family Medicine 02/16/23 Lamination Operator Relationship Specialty Start Date End Date Donavan Wray MD [address] [place] [address] PCP - General Family Medicine 02/16/23 Lamination Operator Relationship Specialty Start Date End Date Donavan Wray MD [address] [place] [address] PCP - General Family Medicine 02/16/23 Navya Calvin, INSPECTOR [employer] [address] [place] [address] PCP - [employer] 07/11/24 Lamination Operator Relationship Specialty Start Date End Date Donavan Wray MD [address] [place] [address] PCP - General Family Medicine 02/16/23 Navya Calvin, INSPECTOR [employer] [address] [place] [address] PCP - [employer] 07/11/24 Lamination Operator Relationship Specialty Start Date End Date Donavan Wray MD [address] [place] [address] PCP - General Family Medicine 02/16/23 Navya Calvin, INSPECTOR [employer] [address] [place] [address] PCP - [employer] 07/11/24 Lamination Operator Relationship Specialty Start Date End Date Donavan Wray MD [address] [place] [address] PCP - General Family Medicine 02/16/23 Navya Calvin, INSPECTOR [employer] [address] [place] [address] PCP - [employer] 07/11/24 Lamination Operator Relationship Specialty Start Date End Date Donavan Wray MD [address] [place] [address] PCP - General Family Medicine 02/16/23 Navya Calvin, INSPECTOR [employer] [address] [place] [address] PCP - [employer] 07/11/24 Lamination Operator Relationship Specialty Start Date End Date Donavan Wray MD [address] [place] [address] PCP - General Family Medicine 02/16/23 Navya Calvin, INSPECTOR [employer] [address] [place] [address] PCP - Jaiden Pickering 07/11/24 Team Status: Inactive Member Role Status Dates Dann Zelaya MD Attending Provider Active Start: April 04, 2025 End: April 04, 2025 Lamination Operator Relationship Specialty Start Date End Date Donavan Wray MD [address] [facility] [address] [place] [address] PCP - General Family Medicine 02/16/23 Lamination Operator Relationship Specialty Start Date End Date Donavan Wray MD [address] [facility] [address] [place] [address] PCP - General Family Medicine 02/16/23 Reason for Visit (unrecogniz ed section and content) Reason Comments Sinusitis Reason Comments Umbilical hernia consult Specialty Diagnoses / Procedures Referred By Contac t Referred To Contact General Surgery Diagnoses Umbilical hernia without obstruction and without gangrene Procedures DE OFFICE/OUTPATIENT NEW HIGH Sarina Edmondson, INSPECTOR [employer] [address] [facility] [facility] [address] [place] [address] Phone: tel: fax: Samuel Lopez, [address] [facility] [address] [place] [address] Phone: tel: fax: Referral ID Status Reason Start Date Expiration Date V isits Requested Visits Authorized [id number] Closed Specialty Services Required 09/20/2024 03/19/2025 1 1 Reason Comments Suspicious Skin Lesion Specialty Diagnoses / Procedures Referred By Contac t Referred To Contact Dermatology Diagnoses Open wound of left thigh, initial encounter Procedures DE OFFICE/OUTPATIENT NEW HIGH MDM Sarina Casanova, [employer] [address] [facility] [address] [place] [address] Phone: tel: fax: Rosie Foreman MD [address] [facility] [address] [place] [address] Phone: tel: fax: Referral ID Status Reason Start Date Expiration Date V isits Requested Visits Authorized [id number] Closed Specialty Services Required 09/20/2024 03/19/2025 1 1 Reason Comments Follow-up Suspicious Skin Lesion Rash Goals (unrecognized section and content) Goals may be documented in a n alternate section FOR RECORDS PERTAINING TO PATIENTS WHO ARE OR HAVE BEEN ENROLLED IN A CHEMICAL DEPENDENCY/SUBSTANCEABUSE PROGRAM, SOME INFORMATION MAY BE OMITTED. This clinical summary was aggregated from multiple sources. Caution should be exercised in using it in the provision of clinical care. This summary normalizes information from multiple sources, and as a consequence, information in this document may materially change the coding, format and clinical context of patient data. In addition, data may be omitted in some cases. CLINICAL DECISIONS SHOULD BE BASED ON THE PRIMARY CLINICAL RECORDS. [facility] [employer] [facility]. provides no warranty or guarantee of the accuracy or completeness of information in this document.
--- NOTE | 2025-07-23 11:37 | XR_ITS ---
[facility] [place] [id number] Patient Name: ARLEN VERGARA MRN: [id number] date: 1980 Sex: M Assigned Patient Location: [facility] Current Patient Location: [facility] Accession/Order Number: [id number] Exam Date: 07/23/2025 11:28 Report Date: 07/23/2025 12:05 At the request of: NAVYA CHASE Procedure: XR chest 2V PA AND LATERAL CHEST: CLINICAL HISTORY: Shortness Of Breath COMPARISON: None There is slight elevation of the right hemidiaphragm. There is no focal parenchymal consolidation, effusion or pneumothorax. The cardiac, hilar and mediastinal silhouettes are within normal limits. A left pericardial fat pad is suspected. There is no vascular congestion. The visualized bony thorax is intact. Slight dextroscoliotic curvature and endplate spurring are seen at the spine. XR/XR chest 2V IMPRESSION: NO ACUTE CARDIOPULMONARY ABNORMALITY. Impression dictated by: Evelia Gamez M.D. 07/23/2025 12:05 PM Dictation Location: [place] [address] Electronically authenticated by: [id number] Y Date: 07/23/2025 12:05
== END 2025-07-23 10:57 | disposition home or self-care (01) ==
LOC: LAB 11:04 → RAD 11:08
PROVIDERS: PCP Family Medicine; Visit Provider Nurse Practitioner Family
DX: R06.02 Shortness of breath (principal)
CPT/HCPCS: 71046